=== PATIENT | male | born 2000 | race Caucasian/White ===

== ENCOUNTER 2019-04-02 12:11 | Emergency (ER) | payer OTHER ==
[2019-04-02] MEDS ORDERED: CYCLOBENZAPRINE 10 MG TAB ONE (13:03)
--- NOTE | 2019-04-02 13:31 | RAD REPORT ---
EXAM DESCRIPTION: RAD - Hip Left 2 View - 04/02/2019 1:24 pm CLINICAL HISTORY: PAIN Trauma, pain COMPARISON: No comparisons FINDINGS: No fracture or dislocation is seen.
--- NOTE | 2019-04-02 13:31 | RAD REPORT ---
EXAM DESCRIPTION: RAD - Femur Left - 04/02/2019 1:24 pm CLINICAL HISTORY: PAIN Trauma, pain COMPARISON: No comparisons FINDINGS: No fracture or dislocation seen.
--- NOTE | 2019-04-02 13:35 | ER ---
Nurse's Notes [facility] Name: Rommel Painter Age: 18 yrs Sex: Male : 2000 Arrival Date: 04/02/2019 Time: 12:16 Bed 20 Private MD: Diagnosis: Pain in left leg Presentation: 04/02 12:37 Presenting complaint: Patient states: Left leg pain that started 2 weeks ago after aj being thrown off a horse. Transition of care: patient was not received from another setting of care. Onset of symptoms was March 13, 2019. Risk Assessment: Do you want to hurt yourself or someone else? Patient reports no desire to harm self or others. Initial Sepsis Screen: Does the patient meet any 2 criteria? No. Patient's initial sepsis screen is negative. Does the patient have a suspected source of infection? No. Patient's initial sepsis screen is negative. Care prior to arrival: None. 12:37 Method Of Arrival: Ambulatory aj 12:37 Acuity: RENALDO 4 aj Triage Assessment: 12:39 General: Appears in no apparent distress. comfortable, Behavior is calm, cooperative, aj appropriate for age. Pain: Complains of pain in left hamstring and posterior aspect of left knee. Neuro: Level of Consciousness is awake, alert, obeys commands, Oriented to person, place, time, situation, Appropriate for age. Respiratory: Airway is patent Respiratory effort is even, unlabored, Respiratory pattern is regular, symmetrical. Derm: Skin is intact, is healthy with good turgor, Skin is pink, warm \T\ dry. normal. Historical: - Allergies: 12:39 No Known Allergies; aj - Home Meds: 12:39 None [Active]; aj - PMHx: 12:39 None; - PSHx: 12:39 Knee surgery; aj - Immunization history:: Adult Immunizations up to date. - Social history:: Smoking status: Patient/guardian denies using tobacco. - Ebola Screening: : Patient negative for fever greater than or equal to 101.5 degrees Fahrenheit, and additional compatible Ebola Virus Disease symptoms Patient denies exposure to infectious person Patient denies travel to an Ebola-affected area in the 21 days before illness onset No symptoms or risks identified at this time. Screenin:45 Abuse screen: Denies threats or abuse. Denies injuries from another. Nutritional hj screening: No deficits noted. Tuberculosis screening: No symptoms or risk factors identified. Fall Risk None identified. Assessment: 12:46 General: Appears in no apparent distress. uncomfortable, Behavior is calm, cooperative, hj appropriate for age. Pain: Complains of pain in left leg. Neuro: Level of Consciousness is awake, alert, obeys commands, Oriented to person, place, time, situation, Appropriate for age. Cardiovascular: Capillary refill < 3 seconds Patient's skin is warm and dry. Respiratory: Airway is patent Respiratory effort is even, unlabored, Respiratory pattern is regular, symmetrical. GI: No signs and/or symptoms were reported involving the gastrointestinal system. : No signs and/or symptoms were reported regarding the genitourinary system. EENT: No signs and/or symptoms were reported regarding the EENT system. Derm: No signs and/or symptoms reported regarding the dermatologic system. Musculoskeletal: Reports pain in left leg. 13:27 Reassessment: Patient and/or family updated on plan of care and expected duration. Pain hj level reassessed. Patient is alert, oriented x 3, equal unlabored respirations, skin warm/dry/pink. awaiting for results and POC;. 13:41 Reassessment: waiting for XRAY copy;. hj Vital Signs: 12:39 BP 144 / 66; Pulse 63; Resp 19; Temp 98.2; Pulse Ox 98% on R/A; Weight 106.14 kg; aj Height 6 ft. 4 in. (193.04 cm); 13:27 BP 142 / 68; Pulse 65; Resp 18; Pulse Ox 100% on R/A; hj 12:39 Body Mass Index 28.48 (106.14 kg, 193.04 cm) aj ED Course: 12:16 Patient arrived in ED. mr 12:39 Triage completed. aj 12:39 Arm band placed on right wrist. Patient placed in an exam room. aj 12:40 Terri Hodges FNP-C is PHCP. kb 12:40 Zafar Tatum MD is Attending Physician. kb 12:45 Kailash Toribio, ZULEIKA is Primary Nurse. hj 12:46 Patient has correct armband on for positive identification. Bed in low position. Call hj light in reach. Side rails up X 1. Adult w/ patient. 13:21 X-ray completed. Patient tolerated procedure well. Patient moved back from radiology. mh1 13:23 Hip Left 2 View XRAY In Process Unspecified. EDMS 13:23 Femur Left XRAY In Process Unspecified. EDMS 13:39 No provider procedures requiring assistance completed. Patient did not have IV access hj during this emergency room visit. Administered Medications: 12:41 Drug: Flexeril 10 mg Route: PO; hj 12:51 Follow up: Response: No adverse reaction hj Outcome: 13:35 Discharge ordered by . crystal 13:40 Discharged to home ambulatory, with family. hj 13:40 Condition: stable 13:40 Discharge instructions given to patient, family, Instructed on discharge instructions, follow up and referral plans. medication usage, Demonstrated understanding of instructions, follow-up care, medications, Prescriptions given X 2. 14:02 Patient left the ED. Signatures: Dispatcher [employer] EDMS Terri Hodges, LEARNING SUPPORT TEACHER-C LEARNING SUPPORT TEACHER-Tonja Vo, Maryanne Soares RN, Martha 1 Kailash Toribio RN RN
--- NOTE | 2019-04-02 13:35 | EDPHYS ---
Physician Documentation [facility] Name: Rommel Painter Age: 18 yrs Sex: Male : 2000 Arrival Date: 04/02/2019 Time: 12:16 Bed 20 Private MD: ED Physician Zafar Tatum HPI: 04/02 12:41 This 18 yrs old Male presents to ER via Ambulatory with complaints of Leg kb Pain. 12:41 The patient presents with pain, that is acute. The complaints affect the left gluteal kb fold and left hamstring. Context: The problem was sustained outdoors, resulted from thrown from horse, the patient can fully bear weight, the patient is able to ambulate, with mild difficulty. Onset: The symptoms/episode began/occurred 2 week(s) ago. Modifying factors: The symptoms are alleviated by nothing. the symptoms are aggravated by weight bearing. Associated signs and symptoms: The patient has no apparent associated signs or symptoms. Treatment prior to arrival includes: no previous treatment. Severity of symptoms: At their worst the symptoms were moderate, in the emergency department the symptoms are unchanged. The patient has not experienced similar symptoms in the past. The patient has not recently seen a physician. Pt reports he was thrown from a horse 2 weeks ago and has had pain to back of leg since then. Pain started at hip and radiates to knee. . Historical: - Allergies: 12:39 No Known Allergies; aj - Home Meds: 12:39 None [Active]; aj - PMHx: 12:39 None; aj - PSHx: 12:39 Knee surgery; aj - Immunization history:: Adult Immunizations up to date. - Social history:: Smoking status: Patient/guardian denies using tobacco. - Ebola Screening: : Patient negative for fever greater than or equal to 101.5 degrees Fahrenheit, and additional compatible Ebola Virus Disease symptoms Patient denies exposure to infectious person Patient denies travel to an Ebola-affected area in the 21 days before illness onset No symptoms or risks identified at this time. ROS: 12:56 Constitutional: Negative for fever, chills, and weight loss, Cardiovascular: Negative kb for chest pain, palpitations, and edema, Respiratory: Negative for shortness of breath, cough, wheezing, and pleuritic chest pain, Abdomen/GI: Negative for abdominal pain, nausea, vomiting, diarrhea, and constipation, Skin: Negative for injury, rash, and discoloration, Neuro: Negative for headache, weakness, numbness, tingling, and seizure. 12:56 MS/extremity: Positive for injury or acute deformity, pain, of the left gluteal fold and left hamstring. Exam: 12:56 Constitutional: This is a well developed, well nourished patient who is awake, alert, kb and in no acute distress. Head/Face: Normocephalic, atraumatic. Chest/axilla: Normal chest wall appearance and motion. Nontender with no deformity. No lesions are appreciated. Cardiovascular: Regular rate and rhythm with a normal S1 and S2. No gallops, murmurs, or rubs. Normal PMI, no JVD. No pulse deficits. Respiratory: Lungs have equal breath sounds bilaterally, clear to auscultation and percussion. No rales, rhonchi or wheezes noted. No increased work of breathing, no retractions or nasal flaring. Abdomen/GI: Soft, non-tender, with normal bowel sounds. No distension or tympany. No guarding or rebound. No evidence of tenderness throughout. Skin: Warm, dry with normal turgor. Normal color with no rashes, no lesions, and no evidence of cellulitis. MS/ Extremity: Pulses equal, no cyanosis. Neurovascular intact. Full, normal range of motion. Neuro: Awake and alert, GCS 15, oriented to person, place, time, and situation. Cranial nerves II-XII grossly intact. Motor strength 5/5 in all extremities. Sensory grossly intact. Cerebellar exam normal. Normal gait. Vital Signs: 12:39 BP 144 / 66; Pulse 63; Resp 19; Temp 98.2; Pulse Ox 98% on R/A; Weight 106.14 kg; aj Height 6 ft. 4 in. (193.04 cm); 13:27 BP 142 / 68; Pulse 65; Resp 18; Pulse Ox 100% on R/A; hj 12:39 Body Mass Index 28.48 (106.14 kg, 193.04 cm) aj MDM: 12:41 Patient medically screened. kb 12:41 Data reviewed: vital signs, nurses notes. Data interpreted: Pulse oximetry: on room air kb is 100 %. Interpretation: normal. 13:34 Counseling: I had a detailed discussion with the patient and/or guardian regarding: the kb historical points, exam findings, and any diagnostic results supporting the discharge/admit diagnosis, radiology results, the need for outpatient follow up, a orthopedic surgeon, to return to the emergency department if symptoms worsen or persist or if there are any questions or concerns that arise at home. 04/02 12:41 Order name: Hip Left 2 View XRAY; Complete Time: 13:34 kb 04/02 12:41 Order name: Femur Left XRAY; Complete Time: 13:34 kb Administered Medications: 12:41 Drug: Flexeril 10 mg Route: PO; hj 12:51 Follow up: Response: No adverse reaction hj Disposition: 14:29 Co-signature as Attending Physician, Zafar Tatum MD. rn Disposition: 04/02/19 13:35 Discharged to Home. Impression: Pain in left leg. - Condition is Stable. - Discharge Instructions: Musculoskeletal Pain. - Prescriptions for Cyclobenzaprine 10 mg Oral Tablet - take 1 tablet by ORAL route every 8 hours As needed; 21 tablet. Diclofenac Sodium 75 mg Oral Tablet, Delayed Release (E.C.) - take 1 tablet by ORAL route 2 times per day As needed; 30 tablet. - Medication Reconciliation Form, Thank You Letter, Antibiotic Education, Prescription Opioid Use form. - Follow up: Emergency Department; When: As needed; Reason: Worsening of condition. Follow up: Private Physician; When: 2 - 3 days; Reason: Recheck today's complaints, Continuance of care, Re-evaluation by your physician. Signatures: Dispatcher [employer] EDTerri Kang, SURAJ-C RAW SAMPLER-Tonja Vo RN RN aj Nieto, Roman, MD MD rn Joaquin, Henry, RN RN hj Corrections: (The following items were deleted from the chart) 14:02 13:35 04/02/2019 13:35 Discharged to Home. Impression: Pain in left leg. Condition is hj Stable. Forms are Medication Reconciliation Form, Thank You Letter, Antibiotic Education, Prescription Opioid Use. Follow up: Emergency Department; When: As needed; Reason: Worsening of condition. Follow up: Private Physician; When: 2 - 3 days; Reason: Recheck today's complaints, Continuance of care, Re-evaluation by your physician. kb
== END 2019-04-02 14:02 | disposition home or self-care (01) ==
LOC: ER 12:11
DX: M79.605 Pain in left leg (principal)
CPT/HCPCS: 99283

== ENCOUNTER 2019-04-26 20:30 | Emergency (ER) | payer OTHER ==
--- OUTSIDE RECORDS SUMMARY | 2019-04-26 20:32 | XMS REPORT | Summary of Care ---
:2000 Author Name BHAVANI Michael, STEPHANIE Address Unavailable Unavailable , Care Team Providers Name Role Phone CHARLENE Michael, MADISON VILLA Unavailable Unavailable BHAVANI Michael, STEPHANIE Unavailable Unavailable MARCK GRACE MD Unavailable Unavailable BHAVANI AJ, STEPHANIE Cortez Unavailable Unavailable Unavailable Unavailable Unavailable Functional Status Name Dates Details Functional status health issues are not documented Status: Name Dates Details Cognitive status health issues are not documented Status: Problems Name Dates Details Failure To Gain Weight (783.41) Status: Active Abnormal weight loss (783.21, R63.4) Status: Active Vomiting (787.03, R11.10) Status: Active Abdominal pain (789.00, R10.9) Status: Active Abdominal pain (789.00, R10.9) Status: Active Back pain (724.5, M54.9) Status: Active Cardiac arrhythmia (427.9, I49.9) Status: Active Left hip pain (719.45, M25.552) Status: Active Left lumbar radiculopathy (724.4, M54.16) Status: Active Medications Name Dates Details Amitriptyline HCl - 25 MG Oral Tablet TAKE 1 TABLET DAILY AT BEDTIME. Quantity: 30 Refills: 2 MADISON CHANG M.D. Start : 10-Dec-2013 Active Naproxen 500 MG Oral Tablet Refills: 0 Active Cyclobenzaprine HCl - 10 MG Oral Tablet TAKE 1 TABLET 3 TIMES DAILY NEEDED. Quantity: 40 Refills: 0 BECKHAM M.D., STEPHANIE Start : 03-Apr-2019 Active traMADol HCl - 50 MG Oral Tablet TAKE 1 TABLET 3 TIMES DAILY NEEDED. Quantity: 40 Refills: 0 BECKHAM M.D., STEPHANIE Start : 03-Apr-2019 Active Allergies and Adverse Reactions Name Dates Details No Known Drug Allergies (Allergy) Status: Active Past Medical History Name Dates Details Personal history of asthma (V12.69, Z87.09) Status: Resolved Procedures Procedure Dates Details MRI Spine lumbar wo contrast 16973 Date: 03-Apr-2019 History of Knee Surgery Completed History of Tonsillectomy Completed History of Adenoidectomy Completed Immunization Name Dates Details Immunizations not documented Family History Name Dates Details Family history of Congenital Heart Disease Comments: Family History Status: Active Family history of Scoliosis Comments: Family History Status: Active Social History Name Dates Details Unknown if ever smoked Vital Signs Date Test Result Details [id number] BP Systolic 151 mm[Hg] Status: Comments: Location: RLE; Position: Sitting BP Diastolic 87 mm[Hg] Status: Comments: Location: RLE; Position: Sitting Height 76 in Status: Weight 230 lb Status: Body Mass Index Calculated 28 kg/m2 Status: Body Surface Area Calculated 2.35 m2 Status: Heart Rate 61 /min Status: Results Date Description Value Details Results not documented Plan of Care Name Dates Details Planned Observations Planned Goals not documented Interventions Provided Medication ChangesCyclobenzaprine HCl - 10 MG Oral Tablet - StarttraMADol HCl - 50 MG Oral Tablet - StartLabs/Procedures/ImagingMRI Spine lumbar wo contrast [id number]; To Be Done: 03 Apr 2019XRAY Hip min 2 views [id number]; Done: 03 Apr 2019PlanI reviewed the patient's x-rays. The patient was given a prescription for Tramadol 50mg and [id number]. Orders were written for an MRI of the lumbar spine. I am referring him to Dr. Ela Fordfor further evaluation and treatment. The patient may return to activity as tolerated. He was instructed to follow up with Dr. Ford after getting the MRI. Instructions Name Dates Details Instructions not documented Encounters Appointment; STEPHANIE BECKHAM M.D. On: 13-Jul-2018 10:00 Encounter Diagnosis: Problem not documented Appointment; STEPHANIE BECKHAM M.D. On: 01-Aug-2018 14:45 Encounter Diagnosis: Problem not documented Appointment; STEPHANIE BECKHAM M.D. On: 03-Apr-2019 13:30 Encounter Diagnosis: Problem not documented
[2019-04-26 21:41] LABS: Absolute Lymphocytes (CBC) 2.2 K/uL (0.7-4.9); Absolute Monocytes 1.4 K/uL (0.1-1.3); Basophils % 0.5 % (0-1.3); Eosinophils % 1.2 % (0-4.4); Hematocrit 42.5 % (39.6-49.0); Lymphocytes % 14.9 % (15.3-44.8); MPV 8.8 fL (7.6-11.3); Monocytes % 9.5 % (3.3-12.3); RBC Red Blood Cell Count 4.95 M/uL (4.33-5.43)
--- NOTE | 2019-04-26 21:45 | ER ---
Nurse's Notes [facility] Name: Romeml Painter Age: 18 yrs Sex: Male : 2000 Arrival Date: 04/26/2019 Time: 20:34 Bed 28 Private MD: Diagnosis: Cellulitis of right lower limb Presentation: 04/26 20:39 Presenting complaint: Patient states: "I got chigger bites on my right ankle and I jd3 think it has gotten infected started about 3 days ago.". Transition of care: patient was not received from another setting of care. Onset of symptoms was April 26, 2019. Risk Assessment: Do you want to hurt yourself or someone else? Patient reports no desire to harm self or others. Initial Sepsis Screen: Does the patient meet any 2 criteria? HR > 90 bpm. No. Patient's initial sepsis screen is negative. Does the patient have a suspected source of infection? No. Patient's initial sepsis screen is negative. Care prior to arrival: None. 20:39 Method Of Arrival: Ambulatory jd3 20:39 Acuity: RENALDO 3 jd3 Historical: - Allergies: 20:42 No Known Allergies; jd3 - Home Meds: 20:42 None [Active]; jd3 - PMHx: 20:42 spine problem; jd3 - PSHx: 20:42 Knee surgery; Tonsillectomy; jd3 - Immunization history:: Adult Immunizations up to date. - Social history:: Smoking status: Patient/guardian denies using tobacco. - Ebola Screening: : Patient negative for fever greater than or equal to 101.5 degrees Fahrenheit, and additional compatible Ebola Virus Disease symptoms. Screenin:14 Abuse screen: Denies threats or abuse. Denies injuries from another. Nutritional mg2 screening: No deficits noted. Tuberculosis screening: No symptoms or risk factors identified. Fall Risk None identified. Assessment: 21:15 General: Appears in no apparent distress. comfortable, Behavior is calm, cooperative. mg2 Pain: Complains of pain in right leg Pain does not radiate. Pain currently is 2 out of 10 on a pain scale. Quality of pain is described as aching, Pain began gradually, last week Is intermittent. Neuro: Level of Consciousness is awake, alert, obeys commands, Oriented to person, place, time, situation. Cardiovascular: Capillary refill < 3 seconds Patient's skin is warm and dry. Respiratory: Airway is patent Respiratory effort is even, unlabored, Respiratory pattern is regular, symmetrical. GI: No signs and/or symptoms were reported involving the gastrointestinal system. : No signs and/or symptoms were reported regarding the genitourinary system. EENT: No signs and/or symptoms were reported regarding the EENT system. Derm: Skin is intact, is healthy with good turgor, Skin is pink, warm \\T\\ dry. normal, chigger bites-leg is swollen and red. Musculoskeletal: Circulation, motion, and sensation intact. Capillary refill < 3 seconds, Swelling present in right leg. 21:46 Reassessment: patient up for discharge after the iv antibiotics. mg2 Vital Signs: 20:40 BP 135 / 74; Pulse 99; Resp 18 S; Temp 98.5(O); Pulse Ox 98% on R/A; Weight 104.33 kg jd3 (R); Height 6 ft. 4 in. (193.04 cm) (R); Pain 6/10; 22:43 BP 125 / 87; Pulse 85; Resp 18; Temp 98.6; Pulse Ox 100% on R/A; Pain 0/10; mg2 20:40 Body Mass Index 28.00 (104.33 kg, 193.04 cm) jd3 ED Course: 20:34 Patient arrived in ED. es 20:40 Triage completed. jd3 20:42 Arm band placed on. jd3 20:47 Arcenio Berry RN is Primary Nurse. mg2 20:48 Malik Mccormick PA is PHCP. cp 20:48 Malik Salgado MD is Attending Physician. cp 21:17 Patient has correct armband on for positive identification. mg2 21:17 No provider procedures requiring assistance completed. mg2 21:40 First set of blood cultures drawn by ED staff, Second set of blood cultures drawn by ky.mg2 21:45 Inserted saline lock: 20 gauge in left antecubital area, using aseptic technique. Blood mg2 collected. 22:44 IV discontinued, intact, bleeding controlled, No redness/swelling at site. Pressure mg2 dressing applied. Administered Medications: 21:45 Drug: Clindamycin 900 mg Route: IVPB; Infused Over: 30 mins; Site: left antecubital; mg2 22:43 Follow up: Response: No adverse reaction; IV Status: Completed infusion mg2 :45 Drug: NS 0.9% 500 ml Route: IV; Rate: bolus; Site: left antecubital; mg2 :43 Follow up: Response: No adverse reaction; IV Status: Completed infusion; IV Intake: mg2 500ml Intake: 22:43 IV: 500ml; Total: 500ml. mg2 Outcome: :44 Discharge ordered by MD. cp :44 Discharged to home ambulatory, with family. mg2 :44 Condition: stable :44 Discharge instructions given to patient, family, Instructed on discharge instructions, follow up and referral plans. medication usage, Demonstrated understanding of instructions, follow-up care, medications, Prescriptions given X 2. :44 Patient left the ED. mg2 Signatures: Eliz Lyon Corey, PA PA cp Davies, Jonathon RN RN Arcenio Alston RN RN mg2 Corrections: (The following items were deleted from the chart) :45 21:17 Patient did not have IV access during this emergency room visit. mg2 mg2
--- NOTE | 2019-04-26 21:45 | EDPHYS ---
Physician Documentation [facility] Name: Rommel Painter Age: 18 yrs Sex: Male : 2000 Arrival Date: 04/26/2019 Time: 20:34 Bed 28 Private MD: ED Physician Malik Salgado HPI: 04/26 20:55 This 18 yrs old Male presents to ER via Ambulatory with complaints of RT cp ankle infected. 20:55 The patient presents with pain, that is acute, swelling, erythema. cp 20:55 The complaints affect the right lower leg. Context: resulted from "chigger" bites, the cp patient can fully bear weight, the patient is able to ambulate. Onset: The symptoms/episode began/occurred 3 day(s) ago. Associated signs and symptoms: Pertinent positives: warmth, Pertinent negatives calf tenderness, fever, numbness, tingling. Treatment prior to arrival includes: no previous treatment. Severity of symptoms: in the emergency department the symptoms are unchanged, despite home interventions. Historical: - Allergies: 20:42 No Known Allergies; jd3 - Home Meds: 20:42 None [Active]; jd3 - PMHx: 20:42 spine problem; jd3 - PSHx: 20:42 Knee surgery; Tonsillectomy; jd3 - Immunization history:: Adult Immunizations up to date. - Social history:: Smoking status: Patient/guardian denies using tobacco. - Ebola Screening: : Patient negative for fever greater than or equal to 101.5 degrees Fahrenheit, and additional compatible Ebola Virus Disease symptoms. ROS: 21:00 MS/extremity: Positive for erythema, swelling, tenderness, warmth, Negative for injury cp or acute deformity, decreased range of motion, paresthesias. 21:00 Constitutional: Negative for body aches, chills, fever. cp 21:00 Respiratory: Negative for cough, shortness of breath, wheezing. 21:00 Abdomen/GI: Negative for abdominal pain, nausea, vomiting, and diarrhea. 21:00 Skin: Positive for of the right lower leg, multiple insect bites. 21:00 All other systems are negative. Exam: 21:10 Constitutional: The patient appears in no acute distress, alert, awake, non-toxic, well cp developed, well nourished. 21:10 Head/Face: Normocephalic, atraumatic. cp 21:10 Eyes: Periorbital structures: appear normal, Conjunctiva: normal, no exudate, no injection, Sclera: no appreciated abnormality, Lids and lashes: appear normal, bilaterally. 21:10 ENT: External ear(s): are unremarkable, Nose: is normal, Mouth: Lips: moist, Oral mucosa: pink and intact, moist, Posterior pharynx: is normal, airway is patent. 21:10 Chest/axilla: Inspection: normal. 21:10 Cardiovascular: Rate: normal, Rhythm: regular. 21:10 Respiratory: the patient does not display signs of respiratory distress, Respirations: normal, no use of accessory muscles, no retractions, no splinting, no tachypnea. 21:10 Skin: cellulitis, that is mild, irregular, on the right lower leg. Vital Signs: 20:40 BP 135 / 74; Pulse 99; Resp 18 S; Temp 98.5(O); Pulse Ox 98% on R/A; Weight 104.33 kg jd3 (R); Height 6 ft. 4 in. (193.04 cm) (R); Pain 6/10; 22:43 BP 125 / 87; Pulse 85; Resp 18; Temp 98.6; Pulse Ox 100% on R/A; Pain 0/10; mg2 20:40 Body Mass Index 28.00 (104.33 kg, 193.04 cm) jd3 MDM: 20:48 Patient medically screened. cp 21:00 Differential diagnosis: cellulitis, abscess. cp 21:42 Data reviewed: vital signs, nurses notes. cp 21:42 Counseling: I had a detailed discussion with the patient and/or guardian regarding: the cp historical points, exam findings, and any diagnostic results supporting the discharge/admit diagnosis, to return to the emergency department if symptoms worsen or persist or if there are any questions or concerns that arise at home. Response to treatment: the patient's symptoms have markedly improved after treatment, and as a result, I will discharge patient. 04/26 21:17 Order name: CBC with Diff cp 04/26 21:17 Order name: BMP; Complete Time: 22:13 cp 04/27 22:13 Interpretation: Normal except: GFR 72. cp 04/26 21:17 Order name: Blood Culture Adult (2) cp 04/26 21:19 Order name: CBC with Automated Diff; Complete Time: 22:13 EDRI 04/27 22:13 Interpretation: Normal except: WBC 14.9; FEDERICO% 73.9; LYM% 14.9; NEUT A 11.0. cp 04/26 21:17 Order name: IV; Complete Time: 21:30 cp Administered Medications: 21:45 Drug: Clindamycin 900 mg Route: IVPB; Infused Over: 30 mins; Site: left antecubital; mg2 22:43 Follow up: Response: No adverse reaction; IV Status: Completed infusion mg2 21:45 Drug: NS 0.9% 500 ml Route: IV; Rate: bolus; Site: left antecubital; mg2 22:43 Follow up: Response: No adverse reaction; IV Status: Completed infusion; IV Intake: mg2 500ml Disposition: 23:00 Chart complete. cp Disposition: 04/26/19 21:44 Discharged to Home. Impression: Cellulitis of right lower limb. - Condition is Stable. - Discharge Instructions: Cellulitis, Adult. - Prescriptions for Clindamycin HCl 300 mg Oral Capsule - take 1 capsule by ORAL route every 6 hours for 10 days; 40 capsule. Bactrim DS 800- 160 mg Oral Tablet - take 1 tablet by ORAL route every 12 hours for 10 days; 20 tablet. - Medication Reconciliation Form, Thank You Letter, Antibiotic Education, Prescription Opioid Use form. - Follow up: Private Physician; When: 2 - 3 days; Reason: Recheck today's complaints. - Problem is new. - Symptoms have improved. Addendum: 04/29/2019 07:43 Co-signature as Attending Physician, Malik Salgado MD I agree with the assessment and c moraes plan of care. Signatures: Dispatcher [employer] Malik Astudillo MD MD cha Page, Corey, PA PA cp Yohannes Garcia RN RN jArcenio Royal RN RN mg2 Corrections: (The following items were deleted from the chart) 04/26 22:44 21:44 04/26/2019 21:44 Discharged to Home. Impression: Cellulitis of right lower limb. mg2 Condition is Stable. Forms are Medication Reconciliation Form, Thank You Letter, Antibiotic Education, Prescription Opioid Use. Follow up: Private Physician; When: 2 - 3 days; Reason: Recheck today's complaints. Problem is new. Symptoms have improved. cp
[2019-04-26] MEDS ORDERED: CLINDAMYCIN 900MG/D5W 900 MG/50 ML IVPB IV ONE (21:46)
[2019-04-26] MEDS ORDERED: NA CHLORIDE 0.9% 500 ML ONE (21:46)
[2019-04-26 21:56] LABS: Potassium 3.6 mmol/L (3.5-5.1)
== END 2019-04-26 22:44 | disposition home or self-care (01) ==
LOC: ER 20:30
DX: L03.115 Cellulitis of right lower limb (principal); S90.561A Insect bite (nonvenomous), right ankle, initial encounter
CPT/HCPCS: 36415; 80048; 85025; 87040; 96365; 99284

== ENCOUNTER 2020-04-27 12:41 | Emergency (ER) | payer OTHER ==
--- NOTE | 2020-04-27 13:21 | EDPHYS ---
Physician Documentation [facility] Name: Rommel Painter Age: 19 yrs Sex: Male : 2000 Arrival Date: 04/27/2020 Time: 12:44 Bed 20 Private MD: ED Physician Zafar Tatum HPI: 04/27 13:16 This 19 yrs old Male presents to ER via Ambulatory with complaints of Low rn Back Pain. 13:16 The patient presents with pain that is acute. The symptoms are located in the low back. rn The pain radiates to the right leg. Onset: The symptoms/episode began/occurred 2 week(s) ago. Modifying factors: The patient symptoms are alleviated by nothing, the patient symptoms are aggravated by any movement. Severity of symptoms: At their worst the symptoms were moderate, in the emergency department the symptoms have improved. The patient has not experienced similar symptoms in the past. Reports a couple of weeks ago had back pain when sliding something out of truck bed, back pain improved but now having pain radiate down right leg, no new injury or trauma, no bowel/bladder problems, no focal neuro deficit. + known vertebral disc problems. . Historical: - Allergies: 12:59 No Known Allergies; iw - Home Meds: 12:59 cyclobenzaprine 10 mg Oral tab 1 tab 3 times per day [Active]; iw - PMHx: 12:59 spine problem; Degenerative disc disease; iw - PSHx: 12:59 Knee surgery; Tonsillectomy; iw - Immunization history:: Adult Immunizations up to date. - Social history:: Smoking status: Patient denies any tobacco usage or history of. - Family history:: not pertinent. - Hospitalizations: : No recent hospitalization is reported. ROS: 13:16 Constitutional: Negative for fever, chills, and weight loss, Eyes: Negative for injury, rn pain, redness, and discharge, Cardiovascular: Negative for chest pain, palpitations, and edema, Respiratory: Negative for shortness of breath, cough, wheezing, and pleuritic chest pain, Abdomen/GI: Negative for abdominal pain, nausea, vomiting, diarrhea, and constipation, Back: Negative for pain, MS/Extremity: Negative for injury and deformity, Skin: Negative for injury, rash, and discoloration, Neuro: Negative for headache, weakness, numbness, tingling, and seizure. Exam: 13:16 Constitutional: This is a well developed, well nourished patient who is awake, alert, rn and in no acute distress. Skin: Warm, dry MS/ Extremity: Pulses equal, no cyanosis. Neurovascular intact. + right sided straight leg raise test. Neuro: Awake and alert, GCS 15, oriented to person, place, time, and situation. Motor strength 5/5 in all extremities. Sensory grossly intact. Cerebellar exam normal. Normal gait. Vital Signs: 12:57 BP 127 / 102; Pulse 106; Resp 16 S; Temp 97.2; Pulse Ox 100% on R/A; Weight 99.79 kg; iw Height 6 ft. 4 in. (193.04 cm); Pain 10/10; 13:33 BP 118 / 98; Pulse 97; Resp 18; Temp 98.0; Pulse Ox 99% on R/A; ph 12:57 Body Mass Index 26.78 (99.79 kg, 193.04 cm) iw MDM: 13:01 Patient medically screened. rn 13:16 Differential diagnosis: arthritis, strain, sciatica, Herniated disc. Data reviewed: rn vital signs, nurses notes, and as a result, I will discharge patient. Counseling: I had a detailed discussion with the patient and/or guardian regarding: the historical points, exam findings, and any diagnostic results supporting the discharge/admit diagnosis, the need for outpatient follow up, to return to the emergency department if symptoms worsen or persist or if there are any questions or concerns that arise at home. Special discussion: I discussed with the patient/guardian in detail that at this point there is no indication for admission to the hospital. It is understood, however, that if the symptoms persist or worsen the patient needs to return immediately for re-evaluation. Further emergent ED testing is not indicated at this point in time. I discussed with the patient/guardian in detail the need to arrange with the PCP or specialist further outpatient testing, MRI, Based on the history and exam findings, there is no indication for further emergent testing or inpatient evaluation. I discussed with the patient/guardian the need to see the orthopedic surgeon for further evaluation of the symptoms. I discussed with the patient/guardian the need to see the primary care provider for further evaluation of the symptoms. ED course: Discussed case with patient and mother, needs outpt MRI, most likely radiculopathy as result of disc problem, no signs of spinal cord compression. . 13:20 ED course: Already has spine/ortho appt in 1 week. . rn Administered Medications: 13:23 Drug: Decadron 10 mg Route: IM; Site: right deltoid; ph 13:34 Follow up: Response: No adverse reaction ph 13:24 Drug: TORadol 30 mg Route: IM; Site: right deltoid; ph 13:35 Follow up: Response: No adverse reaction ph Disposition: 04/27/20 13:21 Discharged to Home. Impression: Radiculopathy, lumbosacral region. - Condition is Stable. - Discharge Instructions: Lumbosacral Radiculopathy. - Prescriptions for Medrol (Jay) 4 mg Oral Tablets, Dose Pack - take 1 tablet by ORAL route as directed - follow package instructions; 1 packet. - Medication Reconciliation Form, Thank You Letter, Antibiotic Education, Prescription Opioid Use, Work release form form. - Follow up: Private Physician; When: As needed; Reason: Recheck today's complaints, Re-evaluation by your physician. - Problem is new. - Symptoms have improved. Signatures: Elsie Santoyo RN RN iw Zafar Tatum MD MD rn [place]ifton, ZULEIKA Joiner RN ph Corrections: (The following items were deleted from the chart) 13:34 13:21 04/27/2020 13:21 Discharged to Home. Impression: Radiculopathy, lumbosacral ph region. Condition is Stable. Forms are Medication Reconciliation Form, Thank You Letter, Antibiotic Education, Prescription Opioid Use. Follow up: Private Physician; When: As needed; Reason: Recheck today's complaints, Re-evaluation by your physician. Problem is new. Symptoms have improved. rn
--- NOTE | 2020-04-27 13:21 | ER ---
Nurse's Notes [facility] Name: Rommel Painter Age: 19 yrs Sex: Male : 2000 Arrival Date: 04/27/2020 Time: 12:44 Bed 20 Private MD: Diagnosis: Radiculopathy, lumbosacral region Presentation: 04/27 12:56 Chief complaint: Patient states: pain from right hip down to right leg behind knee, iw started this past week on , twisted his back two weeks ago and had back pain that went away, came back after he bent down at work. Coronavirus screen: Proceed with normal triage. Patient denies a cough. Patient denies shortness of breath or difficulty breathing. Patient denies measured and/or subjective temperature greater than 100.4F prior to today's visit. Patient denies travel on a cruise ship or to a country the [facility] currently lists as an affected area. Patient denies contact with known and/or suspected case of COVID-19. 12:57 Ebola Screen: Patient negative for fever greater than or equal to 101.5 degrees iw Fahrenheit, and additional compatible Ebola Virus Disease symptoms Patient denies exposure to infectious person. Patient denies travel to an Ebola-affected area in the 21 days before illness onset. No symptoms or risks identified at this time. Initial Sepsis Screen: Does the patient meet any 2 criteria? No. Patient's initial sepsis screen is negative. Does the patient have a suspected source of infection? No. Patient's initial sepsis screen is negative. Risk Assessment: Do you want to hurt yourself or someone else? Patient reports no desire to harm self or others. Onset of symptoms was April 22, 2020. 12:57 Method Of Arrival: Ambulatory iw 12:57 Acuity: RENALDO 3 iw Historical: - Allergies: 12:59 No Known Allergies; iw - Home Meds: 12:59 cyclobenzaprine 10 mg Oral tab 1 tab 3 times per day [Active]; iw - PMHx: 12:59 spine problem; Degenerative disc disease; iw - PSHx: 12:59 Knee surgery; Tonsillectomy; iw - Immunization history:: Adult Immunizations up to date. - Social history:: Smoking status: Patient denies any tobacco usage or history of. - Family history:: not pertinent. - Hospitalizations: : No recent hospitalization is reported. Screenin:22 Abuse screen: Denies threats or abuse. Denies injuries from another. Nutritional ph screening: No deficits noted. Tuberculosis screening: No symptoms or risk factors identified. Fall Risk None identified. Assessment: 13:23 General: Appears in no apparent distress. comfortable, well groomed, Behavior is calm, ph cooperative, appropriate for age, Denies fever, feeling ill. Pain: Complains of pain in low back area Pain radiates to right leg. Neuro: Level of Consciousness is awake, alert, obeys commands, Oriented to person, place, time, situation. Cardiovascular: Capillary refill < 3 seconds Patient's skin is warm and dry. Respiratory: No deficits noted. Derm: Skin is intact, is healthy with good turgor, Skin is pink, warm \T\ dry. Vital Signs: 12:57 BP 127 / 102; Pulse 106; Resp 16 S; Temp 97.2; Pulse Ox 100% on R/A; Weight 99.79 kg; iw Height 6 ft. 4 in. (193.04 cm); Pain 10/10; 13:33 BP 118 / 98; Pulse 97; Resp 18; Temp 98.0; Pulse Ox 99% on R/A; ph 12:57 Body Mass Index 26.78 (99.79 kg, 193.04 cm) iw ED Course: 12:44 Patient arrived in ED. fj1 12:58 Triage completed. iw 13:01 Zafar Tatum MD is Attending Physician. rn 13:13 Marisel Winn RN is Primary Nurse. ph 13:22 Patient has correct armband on for positive identification. Bed in low position. Call ph light in reach. Side rails up X 1. Pulse ox on. NIBP on. Door closed. Noise minimized. Head of bed elevated. 13:22 Arm band placed on Patient placed in an exam room. ph 13:34 No provider procedures requiring assistance completed. Patient did not have IV access ph during this emergency room visit. Administered Medications: 13:23 Drug: Decadron 10 mg Route: IM; Site: right deltoid; ph 13:34 Follow up: Response: No adverse reaction ph 13:24 Drug: TORadol 30 mg Route: IM; Site: right deltoid; ph 13:35 Follow up: Response: No adverse reaction ph Outcome: 13:21 Discharge ordered by . rn 13:34 Discharged to home ambulatory, with family. ph 13:34 Condition: good 13:34 Discharge instructions given to patient, Instructed on discharge instructions, follow up and referral plans. medication usage, Demonstrated understanding of instructions, follow-up care, medications. 13:34 Patient left the ED. ph Signatures: Elsie Santoyo RN RN iw Nieto, Roman, MD MD rn Hall, Patricia, RN RN ph James, Frank fj
[2020-04-27] MEDS ORDERED: dexAMETHasone 10 MG/ML VIAL ONE (13:24)
[2020-04-27] MEDS ORDERED: KETOROLAC 30 MG/ML INJ ONE (13:24)
[2020-04-27 13:42] VITALS: BP 118/98; TEMP 98; O2SAT 99
--- OUTSIDE RECORDS SUMMARY | 2020-04-27 17:00 | XMS REPORT | Continuity of Care Document ---
:2000 Author Organization [facility] t Address [address] [place] [address] Care Team Providers Name Role Phone BECKHAM Attending Clinician Unavailable Problems Condition Condition Condition Status Onset Resolution Last Treating Co mments Source Name Details Category Date Date Treatment Clinician Date Failure To Failure To Problem Active U nivers Gain Gain ity of Weight Weight [place] [facility] Personal Personal Problem Resolve Univ ers history of history of d it y of asthma asthma [place] [facility] Abnormal Abnormal Problem Active Unive rs weight weight ity of loss loss [place] [facility] Vomiting Vomiting Problem Active Unive rs ity of [place] [facility] Abdominal Abdominal Problem Active Uni vers pain pain ity of [place] [facility] Back pain Back pain Problem Active Uni vers ity of [place] [facility] Cardiac Cardiac Problem Active Univers arrhythmia arrhythmia it y of [place] [facility] Left hip Left hip Problem Active Unive rs pain pain ity of [place] [facility] Left Left Problem Active Univers lumbar lumbar ity of radiculopa [place]opa [place] [facility] Failure To Problem Active 2014-01-16 M emoria Gain 19:47:27 l Weight Failure [place] To Gain Weight Active 4 [facility] Abdominal Problem Active 2014-01-16 Me moria Pain 19:47:27 l Christophe Abdominal Pain Active 4 [facility] Abnormal Problem Active 2014-01-16 Mem oria Weight 19:47:27 l Loss Abnormal Jeff n Weight Loss Active 4 [facility] Vomiting Problem Active 2014-01-16 Mem oria (Symptom) 19:47:27 l Vomiting Jeff n (Symptom) Active 4 [facility] Sinus Problem Active 2014-01-16 Memor ia Arrhythmia 19:47:27 l Sinus Christophe Arrhythmia Active 01/16/2014 [facility] Back Pain Problem Active 2014-01-16 Me moria 19:47:27 l Back [place] Pain Active 4 [facility] Allergies, Adverse Reactions, Alerts Allergy Allergy Status Severity Reaction(s) Onset Inactive Treating Comm ents Source Name Type Date Date Clinician No Known No Known Active Memori a Drug Drug l Allergie Allergie Jeff n s s Family History Family Member Diagnosis Comments Start Date Stop Date Source Unknown Family Family history of Family History [facility] [place] [facility] Disease Unknown Family Family history of Family History [facility] Member Scoliosis [place] [facility] Unknown Family Family History 2014-01-16 2014-01-16 Memori al [place] Member 19:47:27 19:47:27 Social History Social Habit Start Date Stop Date Quantity Comments Source Social History 2014-01-16 2014-01-16 [facility] adriana 19:47:27 19:47:27 Medications Ordered Filled Start Stop Current Ordering Indication Dosage Frequency Signature Comments Components Source Medication Medication Date Date Medication? Clinician (SIG) Name Name Cyclobenzap Cyclobenzap Yes STEPHANIE Q0.3333D TAKE 1 [facility] rine HCl - rine HCl - 5- BECKHAM M.D. TABLET 3 ity of 10 MG Oral 10 MG Oral 00:00: TIMES [place] Tablet Tablet 00 DAILY Physici NEEDED. ans traMADol traMADol Yes STEPHANIE Q0.3333D TAKE 1 Univers HCl - 50 MG HCl - 50 MG - BECKHAM M.D. TABLET 3 ity of Oral Tablet Oral Tablet 00:00: TIMES [place] 00 DAILY Physici NEEDED. ans Amitriptyli Yes ; Start Mem oria ne HCl 25 - Date: l MG Oral 06:00: 12/10/2013 Herm sariah Tablet 00 ; End Date: (Active) Amitriptyli Amitriptyli Yes [place] TAKE 1 Univers ne HCl - 25 ne HCl - 25 -28 CHARLENE TABLET ity of MG Oral MG Oral 00:00: M.D. DAILY AT [facility] as Tablet Tablet 00 BEDTIME. Physici ans No Reported Yes (Active) M emoria Medications 1-20 l 01:00: Christophe 13 Bactrim DS Yes ; Start Guy roxana 800-160 MG 5-30 Date: l Oral Tablet 05:00: 04/11/2013 Christophe 00 (Active) Naproxen Naproxen Yes M.A. Univers 500 MG Oral 500 MG Oral i ty of Tablet Tablet [place] [facility] Vital Signs Vital Name Observation Time Observation Value Comments Source BP Systolic 2019-04-03 151 mm[Hg] Location: [facility]; [facility] 13:40:00 Position: [place] [facility] Sitting BP Diastolic 2019-04-03 87 mm[Hg] Location: [facility] 13:40:00 Position: [place] Physician s Sitting Height 2019-04-03 76 [in_us] [facility] 13:40:00 [place] [facility] s Weight 2019-04-03 230 [lb_av] [facility] 13:40:00 [place] [facility] Body Mass Index 2019-04-03 28 kg/m2 University o f Calculated 13:40:00 [place] [facility] Heart Rate 2019-04-03 61 /min [facility] 13:40:00 [place] [facility] Procedures Procedure Date / Time Performing Clinician Source Performed MRI Spine lumbar wo 2019-04-03 00:00:00 [facility] contrast [address]163 Physicians History of Knee Surgery [facility] Physicians History of Tonsillectomy [facility] Physicians History of Adenoidectomy [facility] Physicians Plan of Care Planned Activity Planned Date Details Comments Source Future Scheduled Test 2014-01-16 19:47:27 [facility] 12136-4] Future Scheduled Test 2014-01-08 18:52:14 Plan of Care [[facility] = 99976-0] Future Scheduled Test 2014-01-08 17:52:27 Plan of Care [code [facility] = 56526-4] Future Scheduled Test 2013-12-10 17:02:12 Plan of Care [code [facility] = 50874-0] Future Scheduled Test 2013-12-02 01:00:13 Plan of Care [code [facility] = 87402-8] Future Scheduled Test 2013-11-28 04:30:59 Plan of Care [code Makenna Saeed = 03106-0] Future Scheduled Test 2013-11-28 04:16:09 Plan of Care [code Makenna Samuelann = 45507-9] Future Scheduled Test 2013-04-28 23:16:42 Plan of Care [code Makenna Samuelann = 11283-9] Future Scheduled Test 2013-04-26 02:28:05 Plan of Care [code Makenna Samuelann = 14119-8] Future Scheduled Test 2013-04-12 03:01:34 Plan of Care [code Makenna Saeed = 55444-6] Encounters Start End Encounter Admission Attending Care Care Encounter Source Date/Time Date/Time Type Type Clinicians Facility Department ID 2020-04-26 2020-04-26 Emergency E [id number] 17:02:00 17:02:00 2019-04-03 2019-04-03 NELIA Segura [id number] [facility] 13:30:00 13:30:00 t; STEPHANIE BECKHAM, Orthopedic i ty bhargav BROWN M.D. Surgery - [facility] 1 ans 2018-08-01 2018-08-01 NELIA Segura [id number] Univers 14:45:00 14:45:00 t; STEPHANIE BECKHAM ity of [place], M.D. [place] M.D. Physici ans 2018-07-13 2018-07-13 NELIA Segura [id number] Univers 10:00:00 10:00:00 t; STEPHANIE BECKHAM ity of [place], M.D. [place] M.D. Physici ans 2014-01-16 2014-01-16 Outpatient [facility] [id number] 13:47:27 13:47:27 2014-01-08 2014-01-08 Outpatient [facility] [id number] 12:52:15 12:52:14 2014-01-08 2014-01-08 Outpatient [facility] [id number] 11:52:28 11:52:27 2013-12-10 2013-12-10 Outpatient [facility] [id number] 11:02:12 11:02:12 2013-12-01 2013-12-01 Outpatient [facility] [id number] 19:00:13 19:00:13 2013-11-27 2013-11-27 Outpatient [facility] IE [id number] 22:31:03 22:30:59 2013-11-27 2013-11-27 Outpatient [facility] [id number] 22:16:11 22:16:09 2013-04-28 2013-04-28 Outpatient [facility] [id number] 18:17:01 18:16:42 2013-04-25 2013-04-25 Outpatient MHIE IE [id number] 21:28:25 21:28:05 2013-04-11 2013-04-11 Outpatient [facility] IE [id number] 22:01:52 22:01:34 Results This patient has no known results.
--- OUTSIDE RECORDS SUMMARY | 2020-04-27 17:00 | XMS REPORT | Continuity of Care Document ---
:1998 Author Organization [employer] Care Team Providers Name Role Phone [employer] Unavailable Un available Problems Problem Status Onset Classification Date Comments Sourc e Date Reported Failure To Active 01/16/2014 [facility] Gain Weight Abdominal Pain Active 01/16/2014 [facility] Abnormal Active 01/16/2014 [facility] Weight Loss Vomiting Active 01/16/2014 [facility] (Symptom) Sinus Active 01/16/2014 [facility] Arrhythmia Back Pain Active 01/16/2014 [facility] Medications Medication Details Route Status Patient Ordering Order Source Instructions Provider Date Amitriptyline ; Start Active [facility] HCl 25 MG Oral Date: 014 Physician s Tablet 12/10/2013 ; End Date: (Active) Bactrim DS ; Start Active [facility] 800-160 MG Oral Date: 013 Physicia ns Tablet 04/11/2013 (Active) No Reported (Active) Active [facility] Allergies, Adverse Reactions, Alerts Substance Category Reaction Severity Reaction Status Date Comments S ource type Reported No Known drug drug Active [facility] Drug allergy allergy Physicia ns Allergies Immunizations No Data Provided for This Section Results No Data Provided for This Section Pathology Reports No Data Provided for This Section Diagnostic Reports No Data Provided for This Section Consultation Notes No Data Provided for This Section Discharge Summaries No Data Provided for This Section History and Physicals No Data Provided for This Section Vital Signs No Data Provided for This Section Encounters Location Location Encounter Encounter Reason Attending ADM [place] Stat [place] Source Details Type Number For Provider Date Date Visit AUDIT [id number] 04/11 [facility] AUDIT [id number] 04/25 [facility] AUDIT [id number] 04/28 [facility] AUDIT [id number] 11/27 [facility] AUDIT [id number] 11/27 [facility] AUDIT [id number] 12/01 [facility] AUDIT [id number] 12/10 /2013 [facility] AUDIT [id number] 01/08 [facility] AUDIT [id number] 01/08 [facility] AUDIT [id number] 01/16 [facility] EST, [id number] 02/04 12/10 [facility] Provider: Chris Magallanes, Status: Pen, Time: 11:00 AM FUP, [id number] 03/13 01/16 [facility] Provider: URBAN Mohamud, Status: Pen, Time: 11:00 AM EST, [id number] 04/02 01/16 [place] Provider: Chris Magallanes, Status: Pen, Time: 9:30 AM Procedures No Data Provided for This Section Assessment and Plan No Data Provided for This Section Plan of Care Plan of Care Date Source [QLH] HELICOBACTER PYLORI AG, EIA, 01/16/2014 [facility] STOOL 04/11/2013 Routine[QLH] OVA AND PARASITES, STOOL CONC/PERM SMEAR, 3 SPEC 04/11/2013 Routine[QLH] FECAL LEUKOCYTE STAIN 04/11/2013 Routine[QLH] CALPROTECTIN, STOOL 04/11/2013 Routine[QLH] GIARDIA AG, EIA, STOOL 04/11/2013 Routine[QLH] OCCULT BLOOD, STOOL, SCREENING 04/11/2013 Routine[QLH] CLOSTRIDIUM DIFFICILE TOXIN A AND B, EIA 04/11/2013 Routine[QLH] CRYPTOSPORIDIUM AG, DFA 04/11/2013 RoutineGI Bowel small bowel series 08848 04/11/2013 Routine[LH] Bilirubin Total and Direct 04/25/2013 RoutineECG-12 Lead 01/08/2014 Routine [QLH] HELICOBACTER PYLORI AG, EIA, 01/08/2014 [facility] STOOL 04/11/2013 Routine[QLH] OVA AND PARASITES, STOOL CONC/PERM SMEAR, 3 SPEC 04/11/2013 Routine[QLH] FECAL LEUKOCYTE STAIN 04/11/2013 Routine[QLH] CALPROTECTIN, STOOL 04/11/2013 Routine[QLH] GIARDIA AG, EIA, STOOL 04/11/2013 Routine[QLH] OCCULT BLOOD, STOOL, SCREENING 04/11/2013 Routine[QLH] CLOSTRIDIUM DIFFICILE TOXIN A AND B, EIA 04/11/2013 Routine[QLH] CRYPTOSPORIDIUM AG, DFA 04/11/2013 RoutineGI Bowel small bowel series 03116 04/11/2013 Routine[LH] Bilirubin Total and Direct 04/25/2013 RoutineECG-12 Lead 01/08/2014 Routine [QLH] HELICOBACTER PYLORI AG, EIA, 01/08/2014 [facility] STOOL 04/11/2013 Routine[QLH] OVA AND PARASITES, STOOL CONC/PERM SMEAR, 3 SPEC 04/11/2013 Routine[QLH] FECAL LEUKOCYTE STAIN 04/11/2013 Routine[QLH] CALPROTECTIN, STOOL 04/11/2013 Routine[QLH] GIARDIA AG, EIA, STOOL 04/11/2013 Routine[QLH] OCCULT BLOOD, STOOL, SCREENING 04/11/2013 Routine[QLH] CLOSTRIDIUM DIFFICILE TOXIN A AND B, EIA 04/11/2013 Routine[QLH] CRYPTOSPORIDIUM AG, DFA 04/11/2013 RoutineGI Bowel small bowel series 24487 04/11/2013 Routine[LH] Bilirubin Total and Direct 04/25/2013 Routine [QLH] HELICOBACTER PYLORI AG, EIA, 12/10/2013 [facility] STOOL 04/11/2013 Routine[QLH] OVA AND PARASITES, STOOL CONC/PERM SMEAR, 3 SPEC 04/11/2013 Routine[QLH] FECAL LEUKOCYTE STAIN 04/11/2013 Routine[QLH] CALPROTECTIN, STOOL 04/11/2013 Routine[QLH] GIARDIA AG, EIA, STOOL 04/11/2013 Routine[QLH] OCCULT BLOOD, STOOL, SCREENING 04/11/2013 Routine[QLH] CLOSTRIDIUM DIFFICILE TOXIN A AND B, EIA 04/11/2013 Routine[QLH] CRYPTOSPORIDIUM AG, DFA 04/11/2013 RoutineGI Bowel small bowel series 75846 04/11/2013 Routine[LH] Bilirubin Total and Direct 04/25/2013 Routine [QLH] HELICOBACTER PYLORI AG, EIA, 12/02/2013 [facility] STOOL 04/11/2013 Routine[QLH] OVA AND PARASITES, STOOL CONC/PERM SMEAR, 3 SPEC 04/11/2013 Routine[QLH] FECAL LEUKOCYTE STAIN 04/11/2013 Routine[QLH] CALPROTECTIN, STOOL 04/11/2013 Routine[QLH] GIARDIA AG, EIA, STOOL 04/11/2013 Routine[QLH] OCCULT BLOOD, STOOL, SCREENING 04/11/2013 Routine[QLH] CLOSTRIDIUM DIFFICILE TOXIN A AND B, EIA 04/11/2013 Routine[QLH] CRYPTOSPORIDIUM AG, DFA 04/11/2013 RoutineGI Bowel small bowel series 98945 04/11/2013 Routine[LH] Bilirubin Total and Direct 04/25/2013 Routine [QLH] TISSUE TRANSGLUTAMINASE 11/28/2013 [facility] ANTIBODY, IGA 11/27/2013 Routine[H] Gliadin(Deamidated Peptide) Antibody IgA 11/27/2013 Routine[H] Gliadin(Deamidated Peptide) Antibody IgG 11/27/2013 Routine[QLH] TRICIA PANEL, COMPREHENSIVE 11/27/2013 Routine[LH] Bilirubin Total and Direct 04/25/2013 Routine[QLH] HELICOBACTER PYLORI AG, EIA, STOOL 04/11/2013 Routine[QLH] OVA AND PARASITES, STOOL CONC/PERM SMEAR, 3 SPEC 04/11/2013 Routine[QLH] FECAL LEUKOCYTE STAIN 04/11/2013 Routine[QLH] CALPROTECTIN, STOOL 04/11/2013 Routine[QLH] GIARDIA AG, EIA, STOOL 04/11/2013 Routine[QLH] OCCULT BLOOD, STOOL, SCREENING 04/11/2013 Routine[QLH] CLOSTRIDIUM DIFFICILE TOXIN A AND B, EIA 04/11/2013 Routine[QLH] CRYPTOSPORIDIUM AG, DFA 04/11/2013 RoutineGI Bowel small bowel series 17555 04/11/2013 Routine [QLH] FECAL LEUKOCYTE STAIN 11/28/2013 [facility] 04/11/2013 Routine[QLH] CALPROTECTIN, STOOL 04/11/2013 Routine[QLH] GIARDIA AG, EIA, STOOL 04/11/2013 Routine[QLH] OCCULT BLOOD, STOOL, SCREENING 04/11/2013 Routine[QLH] CLOSTRIDIUM DIFFICILE TOXIN A AND B, EIA 04/11/2013 Routine[QLH] CRYPTOSPORIDIUM AG, DFA 04/11/2013 Routine[QLH] TRICIA PANEL, COMPREHENSIVE 11/27/2013 Routine[H] Gliadin(Deamidated Peptide) Antibody IgG 11/27/2013 Routine[H] Gliadin(Deamidated Peptide) Antibody IgA 11/27/2013 Routine[QLH] TISSUE TRANSGLUTAMINASE ANTIBODY, IGA 11/27/2013 Routine[QLH] HELICOBACTER PYLORI AG, EIA, STOOL 04/11/2013 Routine[QLH] OVA AND PARASITES, STOOL CONC/PERM SMEAR, 3 SPEC 04/11/2013 RoutineGI Bowel small bowel series 54363 04/11/2013 Routine[LH] Bilirubin Total and Direct 04/25/2013 Routine [QLH] HELICOBACTER PYLORI AG, EIA, 04/28/2013 [facility] STOOL 04/11/2013 Routine[QLH] OVA AND PARASITES, STOOL CONC/PERM SMEAR, 3 SPEC 04/11/2013 Routine[QLH] FECAL LEUKOCYTE STAIN 04/11/2013 Routine[QLH] CALPROTECTIN, STOOL 04/11/2013 Routine[QLH] GIARDIA AG, EIA, STOOL 04/11/2013 Routine[QLH] OCCULT BLOOD, STOOL, SCREENING 04/11/2013 Routine[QLH] CLOSTRIDIUM DIFFICILE TOXIN A AND B, EIA 04/11/2013 Routine[QLH] CRYPTOSPORIDIUM AG, DFA 04/11/2013 RoutineGI Bowel small bowel series 04/11/2013 Routine[LH] Bilirubin Total and Direct 04/25/2013 Routine [QLH] HELICOBACTER PYLORI AG, EIA, 04/26/2013 [facility] STOOL 04/11/2013 Routine[QLH] OVA AND PARASITES, STOOL CONC/PERM SMEAR, 3 SPEC 04/11/2013 Routine[QLH] FECAL LEUKOCYTE STAIN 04/11/2013 Routine[QLH] CALPROTECTIN, STOOL 04/11/2013 Routine[QLH] GIARDIA AG, EIA, STOOL 04/11/2013 Routine[QLH] OCCULT BLOOD, STOOL, SCREENING 04/11/2013 Routine[QLH] CLOSTRIDIUM DIFFICILE TOXIN A AND B, EIA 04/11/2013 Routine[QLH] CRYPTOSPORIDIUM AG, DFA 04/11/2013 RoutineGI Bowel small bowel series 04/11/2013 Routine[LH] Bilirubin Total and Direct 04/25/2013 Routine [QLH] HELICOBACTER PYLORI AG, EIA, 04/12/2013 [facility] STOOL 04/11/2013 Routine[QLH] OVA AND PARASITES, STOOL CONC/PERM SMEAR, 3 SPEC 04/11/2013 Routine[QLH] FECAL LEUKOCYTE STAIN 04/11/2013 Routine[QLH] CALPROTECTIN, STOOL 04/11/2013 Routine[QLH] GIARDIA AG, EIA, STOOL 04/11/2013 Routine[QLH] OCCULT BLOOD, STOOL, SCREENING 04/11/2013 Routine[QLH] CLOSTRIDIUM DIFFICILE TOXIN A AND B, EIA 04/11/2013 Routine[QLH] CRYPTOSPORIDIUM AG, DFA 04/11/2013 RoutineGI Bowel small bowel series 04/11/2013 Routine Social History Social History Date Source Never A Smoker 01/16/2014 [facility] (Active) Family History Value Date Source Family history of Congenital 01/16/2014 [facility] Heart Disease (Active) Family history of Scoliosis (Active) Advance Directives Order Name Results Value Date Source Advance Directives Advance Directives No Advance 01/16/2014 [facility] Directives available. Advance Directives Advance Directives No Advance 01/08/2014 [facility] Directives available. Advance Directives Advance Directives No Advance 01/08/2014 [facility] Directives available. Advance Directives Advance Directives No Advance 12/10/2013 [facility] Directives available. Advance Directives Advance Directives No Advance 12/02/2013 [facility] Directives available. Advance Directives Advance Directives No Advance 11/28/2013 [facility] Directives available. Advance Directives Advance Directives No Advance 11/28/2013 [facility] Directives available. Advance Directives Advance Directives No Advance 04/28/2013 [facility] Directives available. Advance Directives Advance Directives No Advance 04/26/2013 [facility] Directives available. Advance Directives Advance Directives No Advance 04/12/2013 [facility] Directives available. Functional Status No Data Provided for This Section
--- OUTSIDE RECORDS SUMMARY | 2020-04-27 17:01 | XMS REPORT | Summary of Care ---
:2000 Author Name BHAVANI Michael Address Unavailable Unavailable , Care Team Providers Name Role Phone CHARLENE Michael Unavailable Unavailable BHAVANI Michael Unavailable Unavailable LESLY MALONE Unavailable Unavailable BHAVANI MALONE Unavailable Unavailable Unavailable Unavailable Unavailable Functional Status Name Dates Details Functional status health issues are not documented Status: Name Dates Details Cognitive status health issues are not documented Status: Problems Name Dates Details Failure To Gain Weight (783.41) Status: Active Abnormal weight loss (783.21, R63.4) Sta tus: Active Vomiting (787.03, R11.10) Status: Active Abdominal pain (789.00, R10.9) Status: A ctive Abdominal pain (789.00, R10.9) Status: A ctive Back pain (724.5, M54.9) Status: Active Cardiac arrhythmia (427.9, I49.9) Status : Active Left hip pain (719.45, M25.552) Status: Active Left lumbar radiculopathy (724.4, M54.16) Status: Active Medications Name Dates Details Amitriptyline HCl - 25 MG Oral Tablet TAKE 1 TABLET DAILY AT BEDTIME. Quantity: 30 Refills: 2 CHARLENE M.MADISON Olmedo Start : 10-Dec-2013 Active Naproxen 500 MG Oral Tablet Refills: 0 M.A.Active Cyclobenzaprine HCl - 10 MG Oral Tablet TAKE 1 TABLET 3 TIMES DAILY NEEDED. Quantity: 40 Refills: 0 BECKHAM M.D., STEPHANIE Start : 03-Apr-2019 Active traMADol HCl - 50 MG Oral Tablet TAKE 1 TABLET 3 TIMES DAILY NEEDED. Quantity: 40 Refills: 0 BECKHAM M.D., STEPHANIE Start : 03-Apr-2019 Active Allergies and Adverse Reactions Name Dates Details No Known Drug Allergies (Allergy) Status : Active Past Medical History Name Dates Details Personal history of asthma (V12.69, Z87.09) Status: Resolved Procedures Procedure Dates Details History of Knee Surgery Completed History of Tonsillectomy Completed History of Adenoidectomy Completed Immunization Name Dates Details Immunizations not documented Family History Name Dates Details Family history of Congenital Heart Disease Comments: Family History Status: Active Family history of Scoliosis Comments: Samara rosenbergy History Status: Active Social History Name Dates Details Tobacco smoking consumption unknown (finding) Vital Signs Date Test Result Details No Known Vitals to report Results Date Description Value Details Results not documented Plan of Care Name Dates Details Planned Observations Planned Goals not documented Instructions Name Dates Details Instructions not documented Encounters Appointment; STEPHANIE BECKHAM M.D. On: 13-Jul-2018 10:00 Encounter Diagnosis: Problem not documented Appointment; STEPHANIE BECKHAM M.D. On: 01-Aug-2018 14:45 Encounter Diagnosis: Problem not documented Appointment; STEPHANIE BECKHAM M.D. On: 03-Apr-2019 13:30 Encounter Diagnosis: Problem not documented
== END 2020-04-27 13:34 | disposition home or self-care (01) ==
LOC: ER 12:41
DX: M54.17 Radiculopathy, lumbosacral region (principal)
CPT/HCPCS: 96372; 99283; J1100

== ENCOUNTER 2020-07-01 11:26 | Emergency (ER) | payer OTHER ==
--- OUTSIDE RECORDS SUMMARY | 2020-07-01 11:32 | XMS REPORT | Continuity of Care Document ---
:2000 Author Organization [facility] t Address [address] [place] [address] Care Team Providers Name Role Phone BECKHAM [...] M emoria Gain 19:47:27 l Weight Failure [place] To Gain Weight Active 4 [facility] Abdominal Problem Active 2014-01-16 Me moria Pain 19:47:27 l [place] Abdominal Pain Active 4 [facility] Abnormal [...] Active 2014-01-16 Me moria 19:47:27 l Back [place] Pain Active 4 [place] [facility] Allergies, Adverse Reactions, Alerts Allergy Allergy Status Severity Reaction(s) Onset Inactive Treating Comm ents Source Name Type Date Date Clinician No Known No Known Active Memori a Drug Drug l Allergie Allergie Jeff n s s Family History Family Member Diagnosis Comments Start Date Stop Date Source Unknown Family Family history of Family History [place] of Member Congenital Heart [place] [facility] Disease Unknown Family Family history of Family History [employer] of Member Scoliosis [place] [facility] Unknown Family Family History 2014-01-16 2014-01-16 Memori al [facility] Member 19:47:27 19:47:27 Social History Social Habit Start Date Stop Date Quantity Comments Source Social History 2014-01-16 2014-01-16 [facility] adriana 19:47:27 19:47:27 Medications Ordered Filled Start [...] Oral MG Oral 00:00: M.D. DAILY AT [facility] as Tablet Tablet 00 BEDTIME. Physici ans No Reported Yes (Active) M emoria Medications 1-20 l 01:00: [place] 13 Bactrim DS Yes ; Start Guy roxana 800-160 MG 5-30 Date: l Oral Tablet 05:00: 04/11/2013 [place] 00 (Active) Naproxen Naproxen Yes M.A. [facility] 500 MG Oral 500 MG Oral i ty of Tablet Tablet [place] [facility] Vital Signs Vital Name Observation Time Observation Value Comments Source BP Systolic 2019-04-03 151 mm[Hg] Location: [facility]; [facility] 13:40:00 Position: [place] [facility] Sitting BP Diastolic 2019-04-03 87 mm[Hg] Location: [facility]; [facility] 13:40:00 Position: [place] [facility] Sitting Height 2019-04-03 76 [in_us] [facility] 13:40:00 [place] [facility] Weight 2019-04-03 230 [lb_av] [facility] 13:40:00 [place] [facility] Body Mass Index 2019-04-03 28 kg/m2 [facility] Calculated 13:40:00 [place] [facility] Heart Rate 2019-04-03 61 /min [facility] 13:40:00 [place] [facility] Procedures Procedure Date / Time Performing Clinician Source Performed MRI Spine lumbar wo 2019-04-03 00:00:00 [facility] contrast [id number] Physicians History of Knee Surgery [facility] Physicians History of Tonsillectomy [facility] Physicians History of Adenoidectomy [facility] Physicians Plan of Care Planned Activity Planned Date Details Comments Source Future Scheduled Test 2014-01-16 19:47:27 [facility] Future Scheduled Test 2014-01-08 18:52:14 [facility] 08063[facility] Future Scheduled Test 2014-01-08 17:52:27 Plan of Care [code [facility] [place] = 58443-6] Future Scheduled Test 2013-12-10 17:02:12 Plan of Care [code [facility] [place] = 82210-4] Future Scheduled Test 2013-12-02 01:00:13 Plan of Care [code Makenna Saeed = 81176-9] Future Scheduled Test 2013-11-28 04:30:59 Plan of Care [code Makenna Saeed = 97440-0] Future Scheduled Test 2013-11-28 04:16:09 Plan of Care [code Makenna Saeed = 01650-0] Future Scheduled Test 2013-04-28 23:16:42 Plan of Care [code Makenna Saeed = 56892-2] Future Scheduled Test 2013-04-26 02:28:05 Plan of Care [code Makenna Saeed = 98718-8] Future Scheduled Test 2013-04-12 03:01:34 Plan of Care [code Makenna Saeed = 62853-1] Encounters Start End Encounter Admission Attending Care Care Encounter Source Date/Time Date/Time Type Type Clinicians Facility Department ID 2020-04-26 2020-04-26 Emergency E [id number] 17:02:00 17:02:00 2019-04-03 2019-04-03 NELIA Segura [id number] [facility] 13:30:00 13:30:00 t; STEPHANIE BECKHAM [facility] M.D. Surgery - [facility] Trace 1 ans 2018-08-01 2018-08-01 NELIA Segura [id number] [facility] 14:45:00 14:45:00 t; STEPHANIE BECKHAM [facility] [place].[facility]. [place] M.D. Physici ans 2018-07-13 2018-07-13 NELIA Segura [id number] [facility] 10:00:00 10:00:00 t; STEPHANIE BECKHAM [facility] [place] M.D. [place] M.D. Physici ans 2014-01-16 2014-01-16 Outpatient [id number] [id number] 13:47:27 13:47:27 2014-01-08 2014-01-08 Outpatient [id number] [id number] 12:52:15 12:52:14 2014-01-08 2014-01-08 Outpatient [id number] [id number] 11:52:28 11:52:27 2013-12-10 2013-12-10 Outpatient [id number] [id number] 11:02:12 11:02:12 2013-12-01 2013-12-01 Outpatient MHIE [facility]IE [id number] 19:00:13 19:00:13 2013-11-27 2013-11-27 Outpatient MHIE IE [id number] 22:31:03 22:30:59 2013-11-27 2013-11-27 Outpatient MHIE IE [id number] 22:16:11 22:16:09 2013-04-28 2013-04-28 Outpatient MHIE IE [id number] 18:17:01 18:16:42 2013-04-25 2013-04-25 Outpatient IE [id number] 21:28:25 21:28:05 2013-04-11 2013-04-11 Outpatient IE [id number] 22:01:52 22:01:34 Results This patient has no known results.
--- OUTSIDE RECORDS SUMMARY | 2020-07-01 11:32 | XMS REPORT | Continuity of Care Document ---
:2000 Author Organization [employer] Care Team Providers Name Role Phone [employer] Unavailable Un available Problems Problem Status Onset [...] Location Location Encounter Encounter Reason Attending ADM HI Stat us Source Details Type Number For Provider Date Date Visit AUDIT [id number] 04/11 Physicians AUDIT [id number] 04/25 Physicians AUDIT [id number] 04/28 Physicians AUDIT [id number] 11/27 Physicians AUDIT [id number] 11/27 Physicians AUDIT [id number] 12/01 Physicians AUDIT [id number] 12/10 /2013 Physicians AUDIT [id number] 01/08 Physicians AUDIT [id number] 01/08 Physicians AUDIT [id number] 01/16 /2013 Physicians EST, [id number] 02/04 12/10 [place] Provider: Chris Magallanes, Status: Pen, Time: 11:00 AM FUP, [id number] 03/13 01/16 [place] Provider: URBAN Mohamud, Status: Pen, Time: 11:00 AM EST, [id number] 04/02 01/16 [place] Provider: Chris Magallanes, Status: Pen, Time: 9:30 [...] DFA 04/11/2013 RoutineGI Bowel small bowel series 43430 04/11/2013 Routine[LH] Bilirubin Total and Direct 04/25/2013 [...] DFA 04/11/2013 RoutineGI Bowel small bowel series 05917 04/11/2013 Routine[LH] Bilirubin Total and Direct 04/25/2013 [...] DFA 04/11/2013 RoutineGI Bowel small bowel series 45942 04/11/2013 Routine[LH] Bilirubin Total and Direct 04/25/2013 [...] DFA 04/11/2013 RoutineGI Bowel small bowel series 32034 04/11/2013 Routine[LH] Bilirubin Total and Direct 04/25/2013 [...] DFA 04/11/2013 RoutineGI Bowel small bowel series 17850 04/11/2013 Routine[LH] Bilirubin Total and Direct 04/25/2013 [...] DFA 04/11/2013 RoutineGI Bowel small bowel series 80053 04/11/2013 Routine [QLH] FECAL LEUKOCYTE STAIN 11/28/2013 [...] SPEC 04/11/2013 RoutineGI Bowel small bowel series 14766 04/11/2013 Routine[LH] Bilirubin Total and Direct 04/25/2013 [...] History Date Source Never A Smoker 01/16/2014 [facility] (Active) Family History Value Date Source Family history of Congenital 01/16/2014 [facility] Heart Disease (Active) Family history of Scoliosis (Active) Advance Directives Order Name Results Value Date Source Advance Directives Advance Directives No Advance 01/16/2014 [facility] Directives available. Advance Directives Advance Directives No Advance 01/08/2014 [facility] Directives available. Advance Directives Advance Directives No Advance 01/08/2014 [facility] Directives available. Advance Directives Advance Directives No Advance 12/10/2013 [facility] Directives available. Advance Directives Advance Directives No Advance 12/02/2013 [facility] Directives available. Advance Directives Advance Directives No Advance 11/28/2013 [facility] Directives available. Advance Directives Advance Directives No Advance 11/28/2013 [facility] Directives available. Advance Directives Advance Directives No Advance 04/28/2013 [facility] Directives available. Advance Directives Advance Directives No Advance 04/26/2013 [facility] Directives available. Advance Directives Advance Directives No Advance 04/12/2013 [facility] Directives available. Functional Status No Data Provided for This Section
[2020-07-01] MEDS ORDERED: ACETAMINOPHEN 500 MG TAB ONE (12:19)
--- NOTE | 2020-07-01 13:25 | RAD REPORT ---
EXAM DESCRIPTION: US - Scrotum Testicles - 07/01/2020 1:18 pm CLINICAL HISTORY: evaluate abscess to perineum; eval nodules in scrotum Pain and swelling COMPARISON: No comparisons FINDINGS: The right testicle 3.7 x 2.7 x 2.0 cm. No intratesticular masses or evidence of testicular torsion. The left testicle 3.4 x 3.2 x 1.7 cm. No intratesticular masses or evidence of testicular torsion. Both epididymides are normal in size and appearance. Mild bilateral hydroceles. IMPRESSION: Mild bilateral hydroceles. No testicular torsion or evidence of intratesticular mass.
--- NOTE | 2020-07-01 13:42 | RAD REPORT ---
EXAM DESCRIPTION: US - Extremity Nonvascular Complete - 07/01/2020 1:28 pm CLINICAL HISTORY: EVAL PERINEUM ABCESS COMPARISON: No comparisons TECHNIQUE: Real-time sonographic evaluation of the area of interest was performed. FINDINGS: In the perineum region along the left aspect there is a significant amount of soft tissue inflammatory changes. Subcutaneous oblong collection measuring 19 x 10 x 5 mm is noted is suspicious for an abscess.
[2020-07-01] MEDS ORDERED: SMZ./TMP. 800/160 MG TABLET ONE (14:05)
--- NOTE | 2020-07-01 14:07 | ER ---
Nurse's Notes [facility] Name: Rommel Painter Age: 19 yrs Sex: Male : 2000 Arrival Date: 07/01/2020 Time: 11:28 Bed 24 Private MD: Diagnosis: Cutaneous abscess of perineum;Tinea cruris Presentation: 07/01 11:44 Chief complaint: Patient states: Left buttocks abscess for 1 week. Drains clear ll1 drainage now. Noticed rash to groin area about 3 weeks ago. Had a lot of itching, none now. States the rash has gotten worse and seems infected now. Feeling malaise today, didn't realize he had fever today. Coronavirus screen: Client denies travel out of the [place] in the last 14 days. At this time, the client does not indicate any symptoms associated with coronavirus-19. Ebola Screen: Patient denies travel to an Ebola-affected area in the 21 days before illness onset. Initial Sepsis Screen: Does the patient meet any 2 criteria? HR > 90 bpm. No. Patient's initial sepsis screen is negative. Does the patient have a suspected source of infection? Yes: Skin breakdown/wound. Risk Assessment: Do you want to hurt yourself or someone else? Patient reports no desire to harm self or others. Onset of symptoms was June 13, 2020. 11:44 Method Of Arrival: Ambulatory 1 11:44 Acuity: RENALDO 3 ll1 Historical: - Allergies: 11:48 No Known Allergies; ll1 - PMHx: 11:48 spine problem; Degenerative disc disease; ll1 - PSHx: 11:48 Tonsillectomy; Knee surgery; ll1 - Immunization history:: Flu vaccine is not up to date. - Social history:: Smoking status: Patient denies any tobacco usage or history of. Patient uses alcohol, only on a social basis. Patient/guardian denies using street drugs. Screenin:04 Abuse screen: Denies threats or abuse. Denies injuries from another. Nutritional ls4 screening: No deficits noted. Tuberculosis screening: No symptoms or risk factors identified. Fall Risk None identified. Assessment: 12:04 General: Appears in no apparent distress. comfortable, Behavior is calm, cooperative. ls4 Pain: Complains of pain in pelvis Pain currently is 5 out of 10 on a pain scale. Neuro: No deficits noted. Cardiovascular: No deficits noted. Respiratory: No deficits noted. GI: No deficits noted. : No deficits noted. EENT: No deficits noted. No signs and/or symptoms were reported regarding the EENT system. Derm: Rash noted that is see EARLY CHILDHOOD TEACHER ASSISTANT note, assessment deferred. Musculoskeletal: No deficits noted. No signs and/or symptoms reported regarding the musculoskeletal system. Vital Signs: 11:44 BP 141 / 90; Pulse 92; Resp 17; Temp 101.4; Pulse Ox 100% ; Weight 99.79 kg; Height 6 ll1 ft. 4 in. (193.04 cm); Pain 5/10; 14:04 BP 128 / 74; Pulse 72; Resp 16; Temp 98.5; Pulse Ox 99% on R/A; Pain 5/10; ls4 11:44 Body Mass Index 26.78 (99.79 kg, 193.04 cm) ll1 ED Course: 11:28 Patient arrived in ED. ds1 11:47 Triage completed. ll1 11:48 Arm band placed on Patient notified of wait time. ll1 11:59 Jaye Mcclellan, ZULEIKA is Primary Nurse. ls4 12:02 Terri Hodges FNP-C is PHCP. kb 12:02 Sarbjit Rodriguez MD is Attending Physician. kb 12:04 No apparent distress. ls4 12:04 Patient has correct armband on for positive identification. Bed in low position. Call ls4 light in reach. Side rails up X 1. hall monitor on. Pulse ox on. NIBP on. Verbal reassurance given. 12:04 No provider procedures requiring assistance completed. Patient did not have IV access ls4 during this emergency room visit. Patient maintains SpO2 saturation greater than 95% on room air. 13:18 US Scrotum Testicles In Process Unspecified. EDMS 13:28 Extremity Nonvascular Complete In Process Unspecified. EDMS 14:07 Elmer Galarza MD is Referral Physician. kb 14:47 No apparent distress. ls4 Administered Medications: 12:15 Drug: Tylenol 1000 mg Route: PO; ls4 13:10 Follow up: Response: No adverse reaction; Temperature is decreased ls4 13:50 Drug: Bactrim (160 mg-800 mg (DS) 1 tablet Route: PO; ls4 14:01 Follow up: Response: No adverse reaction ls4 14:35 Follow up: Response: No adverse reaction ls4 Outcome: 14:07 Discharge ordered by MD. rojas 14:46 Discharged to home ambulatory. ls4 14:46 Condition: good 14:46 Discharge instructions given to patient, Instructed on discharge instructions, follow up and referral plans. medication usage, safety practices, Demonstrated understanding of instructions, follow-up care, medications, Prescriptions given X 1. 14:47 Patient left the ED. ls4 Signatures: Dispatcher [employer] EDMS Terri Hodges, SOFTWARE ENGINEER WEB SERVICES-C SOFTWARE ENGINEER WEB SERVICES-Nica Walker ds1 Jaye Mcclellan, RN RN ls4 Jose Cooney RN RN ll1
--- NOTE | 2020-07-01 14:08 | EDPHYS ---
Physician Documentation [facility] Name: Rommel Painter Age: 19 yrs Sex: Male : 2000 Arrival Date: 07/01/2020 Time: 11:28 Bed 24 Private MD: ED Physician Sarbjit Rodriguez HPI: 07/01 14:05 This 19 yrs old Male presents to ER via Ambulatory with complaints of kb Abscess, Doesn't Feel Right. 14:05 The patient presents with an abscess of the perineum. Description: erythematous, kb swollen. Onset: The symptoms/episode began/occurred 1 week(s) ago. Possible cause(s): unknown. Associated signs and symptoms: Pertinent positives: drainage, erythema, swelling, Pertinent negatives: foreign body sensation, fever, headache, nausea, shortness of breath, vomiting. Modifying factors: the symptoms are alleviated by nothing, the symptoms are aggravated by nothing. Severity of symptoms: At their worst the symptoms were moderate, in the emergency department the symptoms are unchanged. The patient has not experienced similar symptoms in the past. The patient has not recently seen a physician. Pt reports rash to groin area for 2 weeks. Also reports abscess that started about a week ago . Historical: - Allergies: 11:48 No Known Allergies; ll1 - PMHx: 11:48 spine problem; Degenerative disc disease; ll1 - PSHx: 11:48 Tonsillectomy; Knee surgery; ll1 - Immunization history:: Flu vaccine is not up to date. - Social history:: Smoking status: Patient denies any tobacco usage or history of. Patient uses alcohol, only on a social basis. Patient/guardian denies using street drugs. ROS: 14:04 Constitutional: Negative for fever, chills, and weight loss, Cardiovascular: Negative kb for chest pain, palpitations, and edema, Respiratory: Negative for shortness of breath, cough, wheezing, and pleuritic chest pain, Abdomen/GI: Negative for abdominal pain, nausea, vomiting, diarrhea, and constipation, Back: Negative for injury and pain, MS/Extremity: Negative for injury and deformity, Neuro: Negative for headache, weakness, numbness, tingling, and seizure. 14:04 Skin: Positive for abscess, rash, of the groin. Exam: 14:04 Constitutional: This is a well developed, well nourished patient who is awake, alert, kb and in no acute distress. Head/Face: Normocephalic, atraumatic. Chest/axilla: Normal chest wall appearance and motion. Nontender with no deformity. No lesions are appreciated. Cardiovascular: Regular rate and rhythm with a normal S1 and S2. No gallops, murmurs, or rubs. Normal PMI, no JVD. No pulse deficits. Respiratory: Lungs have equal breath sounds bilaterally, clear to auscultation and percussion. No rales, rhonchi or wheezes noted. No increased work of breathing, no retractions or nasal flaring. Abdomen/GI: Soft, non-tender, with normal bowel sounds. No distension or tympany. No guarding or rebound. No evidence of tenderness throughout. Back: No spinal tenderness. No costovertebral tenderness. Full range of motion. MS/ Extremity: Pulses equal, no cyanosis. Neurovascular intact. Full, normal range of motion. Neuro: Awake and alert, GCS 15, oriented to person, place, time, and situation. Cranial nerves II-XII grossly intact. Motor strength 5/5 in all extremities. Sensory grossly intact. Cerebellar exam normal. Normal gait. 14:04 Skin: abscess, that is moderate sized, of the perineum, with induration, rash a moderate rash is noted, consistent with tinea cruris, on the groin. Vital Signs: 11:44 BP 141 / 90; Pulse 92; Resp 17; Temp 101.4; Pulse Ox 100% ; Weight 99.79 kg; Height 6 ll1 ft. 4 in. (193.04 cm); Pain 5/10; 14:04 BP 128 / 74; Pulse 72; Resp 16; Temp 98.5; Pulse Ox 99% on R/A; Pain 5/10; ls4 11:44 Body Mass Index 26.78 (99.79 kg, 193.04 cm) ll1 MDM: 12:02 Patient medically screened. kb 14:03 Data reviewed: vital signs, nurses notes. Data interpreted: Pulse oximetry: on room air kb is 100 %. Interpretation: normal. Counseling: I had a detailed discussion with the patient and/or guardian regarding: the historical points, exam findings, and any diagnostic results supporting the discharge/admit diagnosis, radiology results, the need for outpatient follow up, a general surgeon, to return to the emergency department if symptoms worsen or persist or if there are any questions or concerns that arise at home. Physician consultation: Elmer Galarza MD was contacted at 14:04, regarding consult, patient's condition, and will see patient in office. 07/01 12:17 Order name: US Scrotum Testicles; Complete Time: 13:32 kb 07/01 12:52 Order name: Extremity Nonvascular Complete; Complete Time: 13:47 EDMS Administered Medications: 12:15 Drug: Tylenol 1000 mg Route: PO; ls4 13:10 Follow up: Response: No adverse reaction; Temperature is decreased ls4 13:50 Drug: Bactrim (160 mg-800 mg (DS) 1 tablet Route: PO; ls4 14:01 Follow up: Response: No adverse reaction ls4 14:35 Follow up: Response: No adverse reaction ls4 Disposition: 07/02 09:00 Co-signature as Attending Physician, Sarbjit Rodriguez MD I agree with the assessment and kdr plan of care. Disposition: 07/01/20 14:07 Discharged to Home. Impression: Cutaneous abscess of perineum, Tinea cruris. - Condition is Stable. - Discharge Instructions: Skin Abscess, Zvtf-db-Yyow, Jock Itch, Ybho-bf-Mmpb. - Prescriptions for Bactrim DS 800- 160 mg Oral Tablet - take 1 tablet by ORAL route every 12 hours for 10 days; 20 tablet. - Medication Reconciliation Form, Thank You Letter, Antibiotic Education, Prescription Opioid Use form. - Follow up: Emergency Department; When: As needed; Reason: Worsening of condition. Follow up: Private Physician; When: 2 - 3 days; Reason: Recheck today's complaints, Continuance of care, Re-evaluation by your physician. Follow up: Elmer Galarza MD; When: 1 - 2 days; Reason: Recheck today's complaints. Signatures: Dispatcher [employer] EDMS Terri Hodges, SURAJ-Radha CHAPARROP-Sarbjit Garcia MD MD kdr Stewart, Lisa RN RN ls4 Jose Cooney RN RN ll1 Corrections: (The following items were deleted from the chart) 07/01 14:07 14:07 07/01/2020 14:07 Discharged to Home. Impression: Cutaneous abscess of perineum; kb Tinea cruris. Condition is Stable. Forms are Medication Reconciliation Form, Thank You Letter, Antibiotic Education, Prescription Opioid Use. Follow up: Emergency Department; When: As needed; Reason: Worsening of condition. Follow up: Private Physician; When: 2 - 3 days; Reason: Recheck today's complaints, Continuance of care, Re-evaluation by your physician. kb 14:47 14:07 07/01/2020 14:07 Discharged to Home. Impression: Cutaneous abscess of perineum; ls4 Tinea cruris. Condition is Stable. Discharge Instructions: Skin Abscess, Hxiy-np-Ehjo, Jock Itch, Ewct-iz-Fodw. Prescriptions for Bactrim DS 800-160 mg Oral Tablet - take 1 tablet by ORAL route every 12 hours for 10 days; 20 tablet. and Forms are Medication Reconciliation Form, Thank You Letter, Antibiotic Education, Prescription Opioid Use. Follow up: Emergency Department; When: As needed; Reason: Worsening of condition. Follow up: Private Physician; When: 2 - 3 days; Reason: Recheck today's complaints, Continuance of care, Re-evaluation by your physician. Follow up: Elmer Galarza; When: 1 - 2 days; Reason: Recheck today's complaints. kb
[2020-07-01 15:03] VITALS: BP 128/74; TEMP 98.5; O2SAT 99
== END 2020-07-01 14:47 | disposition home or self-care (01) ==
LOC: ER 11:26
DX: L02.215 Cutaneous abscess of perineum (principal); B35.6 Tinea cruris
CPT/HCPCS: 76870; 76881; 99285

== ENCOUNTER 2020-07-08 10:36 | Day surgery (SDC) | payer OTHER ==
[2020-07-07 18:06] LABS: Absolute Lymphocytes (CBC) 3.2 K/uL (0.7-4.9); Basophils % 0.9 % (0-1.3); Hematocrit 44.7 % (39.6-49.0); Lymphocytes % 40.9 % (15.3-44.8); MPV 9.3 fL (7.6-11.3)
[2020-07-07 19:20] LABS: Potassium 4.7 mmol/L (3.5-5.1)
--- OUTSIDE RECORDS SUMMARY | 2020-07-08 10:41 | XMS REPORT | Continuity of Care Document ---
:2000 Author Organization [facility] t Address [address] [place] [address] Care Team Providers Name Role Phone BECKHAM [...] M emoria Gain 19:47:27 l Weight Failure [place] To Gain Weight Active 4 [facility] [...] 2014-01-16 Memor ia Arrhythmia 19:47:27 l Sinus [place] Arrhythmia Active 01/16/2014 [facility] Back Pain Problem Active 2014-01-16 Me moria 19:47:27 l Back [place] Pain Active 4 [facility] Allergies, Adverse Reactions, Alerts Allergy Allergy Status Severity Reaction(s) Onset Inactive Treating Comm ents Source Name Type Date Date Clinician No Known No Known Active Memori a Drug Drug l Allergie Allergie Jeff n s s Family History Family Member Diagnosis Comments Start Date Stop Date Source Unknown Family Family history of Family History [facility] Congenital [facility] Disease Unknown Family Family history of Family History [facility] Scoliosis [place] [facility] Unknown Family Family History 2014-01-16 2014-01-16 Memori al Christophe Member 19:47:27 19:47:27 Social History Social Habit Start Date Stop Date Quantity Comments Source Social History 2014-01-16 2014-01-16 [facility] adriana 19:47:27 19:47:27 Medications Ordered Filled Start [...] - 50 MG HCl - 50 MG 5- BECKHAM M.D. TABLET 3 ity of Oral Tablet Oral Tablet 00:00: TIMES [place] 00 DAILY Physici NEEDED. ans Amitriptyli Yes ; Start Mem oria ne HCl 25 - Date: l MG Oral 06:00: 12/10/2013 Herm sariah Tablet 00 ; End Date: (Active) Amitriptyli Amitriptyli Yes [place] TAKE 1 [facility] ne HCl - 25 ne HCl - 25 CHARLENE TABLET ity of MG Oral MG Oral 00:00: M.D. DAILY AT [facility] as Tablet Tablet 00 BEDTIME. Physici ans No Reported Yes (Active) M emoria Medications 1-20 l 01:00: [place] 13 Bactrim DS Yes ; Start Guy roxana 800-160 MG 5-30 Date: l Oral Tablet 05:00: 04/11/2013 Christ[facility] 00 (Active) Naproxen Naproxen Yes [facility] 500 MG Oral 500 MG Oral i ty of Tablet Tablet [place] [facility] Vital Signs Vital Name Observation Time Observation Value Comments Source BP Systolic 2019-04-03 151 mm[Hg] Location: [facility]; [facility] 13:40:00 Position: [place] [facility] Sitting BP Diastolic 2019-04-03 87 mm[Hg] Location: [facility] 13:40:00 Position: [place] [facility] Sitting Height 2019-04-03 76 [in_us] [facility] 13:40:00 [place] [facility] Weight 2019-04-03 230 [lb_av] [facility] 13:40:00 [place] [facility] Body Mass Index 2019-04-03 28 kg/m2 [facility] Calculated 13:40:00 [place] [facility] Heart Rate 2019-04-03 61 /min [facility] 13:40:00 [facility] Procedures Procedure Date / Time Performing Clinician Source Performed MRI Spine lumbar wo 2019-04-03 00:00:00 [facility] contrast [address] Physicians History of Knee Surgery [facility] Physicians History of Tonsillectomy [facility] Physicians History of Adenoidectomy [facility] Plan of Care Planned Activity Planned Date Details Comments Source Future Scheduled Test 2014-01-16 19:47:27 [facility] of Care [facility] = 06268-6] Future Scheduled Test 2014-01-08 18:52:14 Plan of Care [code [facility] = 28296-0] Future Scheduled Test 2014-01-08 17:52:27 Plan of Care [code [facility] = 52838-2] Future Scheduled Test 2013-12-10 17:02:12 Plan of Care [code [facility] = 55401-0] Future Scheduled Test 2013-12-02 01:00:13 Plan of Care [code [facility] = 17515-7] Future Scheduled Test 2013-11-28 04:30:59 Plan of Care [code Makenna Saeed = 25930-5] Future Scheduled Test 2013-11-28 04:16:09 Plan of Care [code [facility] = 80149-6] Future Scheduled Test 2013-04-28 23:16:42 Plan of Care [code Makenna Samuelann = 02365-0] Future Scheduled Test 2013-04-26 02:28:05 Plan of Care [code [facility] [place] = 91253-2] Future Scheduled Test 2013-04-12 03:01:34 Plan of Care [code Makenna Samuelann = 45349-4] Encounters Start End Encounter Admission Attending Care Care Encounter Source Date/Time Date/Time Type Type Clinicians Facility Department ID 2020-07-04 2020-07-04 Emergency E [facility] [id number] [facility] 11:01:00 11:01:00 2020-04-26 2020-04-26 Emergency E [facility] [id number] [facility] 17:02:00 17:02:00 2019-04-03 2019-04-03 NELIA Segura [id number] [facility] 13:30:00 13:30:00 t; STEPHANIE BECKHAM Orthopedic i ty bhargav BROWN M.D. Surgery - [place] [facility] Trace 1 ans 2018-08-01 2018-08-01 NELIA Segura [id number] [facility] 14:45:00 14:45:00 t; STEPHANIE BECKHAM ity of [place], M.D. [place] M.D. Physici ans 2018-07-13 2018-07-13 NELIA Segura UTP [id number] [facility] 10:00:00 10:00:00 t; STEPHANIE BECKHAM ity of [place], M.D. [place] M.D. Physici ans 2014-01-16 2014-01-16 Outpatient [facility] [id number] 13:47:27 13:47:27 2014-01-08 2014-01-08 Outpatient [facility] [id number] 12:52:15 12:52:14 2014-01-08 2014-01-08 Outpatient [facility]IE [id number] 11:52:28 11:52:27 2013-12-10 2013-12-10 Outpatient [facility]IE [id number] 11:02:12 11:02:12 2013-12-01 2013-12-01 Outpatient [facility]IE [id number] 19:00:13 19:00:13 2013-11-27 2013-11-27 Outpatient MHIE [facility]IE [id number] 22:31:03 22:30:59 2013-11-27 2013-11-27 Outpatient MHIE MHIE [id number] 22:16:11 22:16:09 2013-04-28 2013-04-28 Outpatient MHIE MHIE [id number] 18:17:01 18:16:42 2013-04-25 2013-04-25 Outpatient MHIE [facility]IE [id number] 21:28:25 21:28:05 2013-04-11 2013-04-11 Outpatient [facility]IE [id number] 22:01:52 22:01:34 Results This patient has no known results.
--- OUTSIDE RECORDS SUMMARY | 2020-07-08 10:41 | XMS REPORT | Continuity of Care Document ---
:2000 Author Organization [employer] Care Team Providers Name Role Phone [employer] Unavailable Un available Problems Problem Status Onset [...] Location Location Encounter Encounter Reason Attending ADM AL Stat us Source Details Type Number For Provider Date Date Visit AUDIT [id number] 04/11 Physicians AUDIT [id number] 04/25 Physicians AUDIT [id number] 04/28 Physicians AUDIT [id number] 11/27 Physicians AUDIT [id number] 11/27 Physicians AUDIT [id number] 12/01 Physicians AUDIT [id number] 12/10 /2013 Physicians AUDIT [id number] 01/08 Physicians AUDIT [id number] 01/08 Physicians AUDIT [id number] 01/16 /2013 Physicians EST, [id number] 02/04 12/10 [place] Provider: Chris Magallanes, Status: Pen, Time: 11:00 AM FUP, [id number] 03/13 01/16 [place] Provider: URBAN Mohamud, Status: Pen, Time: 11:00 AM EST, [id number] 04/02 01/16 [place] Provider: Chris Magallanes, Status: Pen, Time: 9:30 [...] DFA 04/11/2013 RoutineGI Bowel small bowel series 29453 04/11/2013 Routine[LH] Bilirubin Total and Direct 04/25/2013 [...] DFA 04/11/2013 RoutineGI Bowel small bowel series 74396 04/11/2013 Routine[LH] Bilirubin Total and Direct 04/25/2013 [...] DFA 04/11/2013 RoutineGI Bowel small bowel series 62106 04/11/2013 Routine[LH] Bilirubin Total and Direct 04/25/2013 [...] DFA 04/11/2013 RoutineGI Bowel small bowel series 61241 04/11/2013 Routine[LH] Bilirubin Total and Direct 04/25/2013 [...] DFA 04/11/2013 RoutineGI Bowel small bowel series 73916 04/11/2013 Routine[LH] Bilirubin Total and Direct 04/25/2013 [...] DFA 04/11/2013 RoutineGI Bowel small bowel series 28375 04/11/2013 Routine [QLH] FECAL LEUKOCYTE STAIN 11/28/2013 [...] SPEC 04/11/2013 RoutineGI Bowel small bowel series 61377 04/11/2013 Routine[LH] Bilirubin Total and Direct 04/25/2013 [...] History Date Source Never A Smoker 01/16/2014 [facility] (Active) Family History Value Date Source Family history of Congenital 01/16/2014 [facility] [facility] Heart Disease (Active) Family history of Scoliosis (Active) Advance Directives Order Name Results Value Date Source Advance Directives Advance Directives No Advance 01/16/2014 [facility] Directives available. Advance Directives Advance Directives No Advance 01/08/2014 [facility] Directives available. Advance Directives Advance Directives No Advance 01/08/2014 [facility] Directives available. Advance Directives Advance Directives No Advance 12/10/2013 [facility] Directives available. Advance Directives Advance Directives No Advance 12/02/2013 [facility] Directives available. Advance Directives Advance Directives No Advance 11/28/2013 [facility] Directives available. Advance Directives Advance Directives No Advance 11/28/2013 [facility] Directives available. Advance Directives Advance Directives No Advance 04/28/2013 [facility] Directives available. Advance Directives Advance Directives No Advance 04/26/2013 [facility] Directives available. Advance Directives Advance Directives No Advance 04/12/2013 [facility] Directives available. Functional Status No Data Provided for This Section
[2020-07-08] MEDS ORDERED: Ringers Lactate 1,000 ML IV ONE (11:06)
[2020-07-08] MEDS ORDERED: CEFAZOLIN/SWI 1gm 1 GM/10 ML SYR ONE (11:06)
[2020-07-08] MEDS ORDERED: MIDAZOLAM HCL 2 MG/2 ML INJ ONE (12:27)
[2020-07-08] MEDS ORDERED: LIDOCAINE 2% MPF 5 ML VIAL ONE (12:27)
[2020-07-08] MEDS ORDERED: propofoL 200 MG/20 ML VIAL IV ONE (12:27)
[2020-07-08] MEDS ORDERED: FENTANYL CITR 100 MCG/2 ML ONE (12:27)
[2020-07-08] MEDS ORDERED: BUPIVACA 0.25%/EPI 0.0005%/PF 30 ML VIAL ONE (12:41)
[2020-07-08] MEDS ORDERED: KETOROLAC 30 MG/ML INJ ONE (14:08)
--- NOTE | 2020-07-08 14:08 | P.OP ---
Clinical Leader: NONE,NONE Preoperative diagnosis: LEFT Buttock Multiloculated Abscess Postoperative diagnosis: LEFT Buttock Multiloculated Abscess Primary procedure: Excisional Debridement of LEFT Buttock Multiloculated Abscess Anesthesia: GETA + Local Estimated blood loss: <10cc Specimen: Cultures, debridement tissue Findings: multiloculated abscess, ~5cm in size Complications: None Transferred to: Recovery Room Condition: Good
[2020-07-08] MEDS ORDERED: dexAMETHasone 10 MG/ML VIAL ONE (14:10)
[2020-07-08 14:46] VITALS: O2SAT 100
[2020-07-08 15:17] VITALS: BP 99/68; TEMP 97.2
--- NOTE | 2020-07-09 00:36 | OP ---
Date of Procedure: 07/08/2020 Surgeon: Elmer Galarza MD, Preoperative Diagnosis: Left buttock multiloculated abscess. Postoperative Diagnosis: Left buttock multiloculated abscess. Procedure Performed: Excisional debridement of left buttock multiloculated abscess. Anesthesia: General endotracheal plus local with 0.25% Marcaine with epinephrine. Estimated Blood Loss: Less than 10 cc. Specimen: Cultures sent, both aerobic and anaerobic speciation and debridement tissue. Findings: Multiloculated abscess approximately 5 cm in size, extending toward the perineum from the previous incision at the left buttock perianal area. Complications: None. Disposition: Transferred to recovery room in good condition. Procedure In Detail: After informed consent was obtained, the patient was brought to the operating r oom, prepped and draped in usual sterile fashion. After adequate anesthesia was achieved, I digitize d the area of the previous incision on the left buttock area, anesthetized it appropriately, and inci sed to extend the incision so that I could appropriately digitize this multiloculated abscess on the left buttock area. Several large multi-loculations were noted predominantly extending toward the med ial aspect toward the perineum. These were broken up. I had to T out the incision and extend it for approximately a 4 cm and then extend out 3 cm toward the perineum down to subcutaneous tissues using a 15 blade and electrocautery combination. I then used a curette to clean out all debridement tissu e as well as sharp dissection using scissors and debridement tissue was sent off for pathologic exami nation. Cultures sent of those at this time for both aerobic and anaerobic speciation. I ensured th at there were no additional collections and I digitized the area completely. I irrigated the area co piously multiple times until completely clear. Electrocautery was used to achieve hemostasis quite e asily and the area was packed with half-inch iodoform packing and sterile dressing placed on top. Th e patient tolerated the procedure well without evidence of complication, transferred to PACU in good condition. All counts were correct at the end of the case. There was no need to do an exam under an esthesia as this repair did not extend toward the perianal, perirectal area. RAJNI/PAOLA Voice ID: [id number] Report ID: [id number]
== END 2020-07-08 15:24 | disposition home or self-care (01) ==
LOC: OR 10:36
PROVIDERS: ATTEND Surgery
PROC: 0JB90ZZ Excision of Buttock Subcutaneous Tissue and Fascia, Open Approach (ICD-10-PCS; principal; 2020-07-08 15:00)
DX: L02.31 Cutaneous abscess of buttock (principal); Z20.828 Contact with and (suspected) exposure to other viral communicable diseases; Z01.812 Encounter for preprocedural laboratory examination
CPT/HCPCS: 87070; 85025; 80048; 36415; 87205; 88304; 87075; 87077; 87186; 83036; 11042; U0002; J2704; J2250; J3010; J1100; J0690; J7120